=== PATIENT | male | born 1950 | race Caucasian/White ===

== ENCOUNTER 2019-11-20 10:49 | Emergency (ER) | payer OTHER, MEDICARE ==
[~2019-11-20] VITALS: Ht 180.3 cm; Wt 81.7 kg
[2019-11-20 11:24] LABS: BASOPHILS ABSOLUTE AUTO 0.03 K/mm3 (0.00-0.23); BASOPHILS PERCENT AUTO 1 % (0-2); EOSINOPHILS ABSOLUTE AUTO 0.01 K/mm3 (0.00-0.68); EOSINOPHILS PERCENT AUTO 0 % (0-6); Hematocrit 45.6 % (37.0-53.0); Hemoglobin 14.5 g/dL (13.5-17.5); IMMATURE GRAN ABSOLUTE AUTO 0.02 K/mm3 (0.00-0.10); IMMATURE GRAN PERCENT AUTO 0 % (0-1); LYMPHOCYTES ABSOLUTE AUTO 1.33 K/mm3 (0.84-5.20); LYMPHOCYTES PERCENT AUTO 21 % (21-46); MONOCYTES ABSOLUTE AUTO 0.66 K/mm3 (0.16-1.47); MONOCYTES PERCENT AUTO 10 % (4-13); Mean Corpuscular HGB 28.9 pg (26.0-34.0); Mean Corpuscular HGB Conc 31.8 g/dL (31.5-36.5); Mean Corpuscular Volume 91 fL (80-100); Mean Platelet Volume 12.6 fL (9.1-12.4); NEUTROPHILS ABSOLUTE AUTO 4.32 K/mm3 (1.96-9.15); NEUTROPHILS PERCENT AUTO 68 % (41-73); Platelet Count 103 K/mm3 (150-400); RDW Coefficient Variation 13.2 % (11.7-14.2); RDW Standard Deviation 43.8 fL (35.1-46.3); Red Blood Cell Count 5.02 M/mm3 (4.30-5.90); White Blood Cell Count 6.37 K/mm3 (4.00-11.30)
[2019-11-20 11:46] LABS: Alanine Aminotransfer (ALT/SGP 32 U/L (12-78); Albumin, Blood 3.3 g/dL (3.4-5.0); Alk Phos 79 U/L (50-136); Anion Gap 4 mmol/L (6-16); Aspartate Aminotrans (AST/SGOT 22 U/L (12-37); Bilirubin, Total 0.4 mg/dL (0.1-1.0); Blood Urea Nitrogen 17 mg/dL (8-24); Bun/Creatinine Ratio 24.5 (12.0-20.0); CO2, Blood 26 mmol/L (21-32); Calcium, Blood 8.7 mg/dL (8.5-10.1); Chloride, Blood 112 mmol/L (98-108); Globulin, Blood 3.2 g/dL (2.2-4.0); Glomerular Filtration Rate >60 (60-); Glucose, Blood 108 mg/dL (70-99); Potassium, Blood 3.8 mmol/L (3.5-5.5); Sodium, Blood 142 mmol/L (136-145); Total Protein, Blood 6.5 g/dL (6.4-8.2); Troponin I <0.015 ng/mL (0.000-0.040)
[2019-11-20 13:14] LABS: Source, Urine Clean Catch
[2019-11-20 13:18] LABS: Bilirubin, Urine Neg (Neg); Blood, Urine 5+ (Neg); Glucose Qualitative, Urine Neg (Neg); Ketones, Urine Neg (Neg); Leukocyte Esterase, Urine Neg (Neg); Nitrite, Urine Neg (Neg); Protein, Urine Neg (Neg); Urobilinogen, Urine NORM (Normal)
[2019-11-20 13:26] LABS: Appearance, Urine Clear (Clear); Color, Urine Yellow (P-Yellow)
[2019-11-20 13:28] LABS: Bacteria Rare /hpf; Red Blood Cells, Urine 50-100 /hpf (0-2); Squamous Epithelial Cells Rare /hpf (Few); White Blood Cells, Urine 0-2 /hpf (0-5)
== END 2019-11-20 16:02 | disposition home or self-care (01) ==
LOC: ER 10:49
PROVIDERS: Emergency Medicine
DX: R07.9 Chest pain, unspecified (principal); R31.9 Hematuria, unspecified; I25.2 Old myocardial infarction
CPT/HCPCS: 36415; 71046; 72193; 80053; 81001; 84484; 85025; 93005; 93010; 99285-25; Q9967

== ENCOUNTER 2020-06-29 06:05 | Observation (INO) | payer OTHER, MEDICARE ==
[~2020-06-29] VITALS: Ht 180.3 cm; Wt 84.6 kg
[2020-06-29] MEDS ORDERED: CARV25 PO (06:35)
[2020-06-29] MEDS ORDERED: LOSARTAN POTAS100 M1 PO (06:35)
[2020-06-29] MEDS ORDERED: ASPIR 8181 M1 PO (06:36)
[2020-06-29] MEDS ORDERED: ATOR80 PO (06:36)
[2020-06-29] MEDS ORDERED: ISOSORBIDE MONO10 MG PO (06:37)
[2020-06-29 06:42] LABS: BASOPHILS ABSOLUTE AUTO 0.04 K/mm3 (0.00-0.23); BASOPHILS PERCENT AUTO 1 % (0-2); EOSINOPHILS PERCENT AUTO 0 % (0-6); Hematocrit 47.6 % (37.0-53.0); Hemoglobin 14.9 g/dL (13.5-17.5); IMMATURE GRAN ABSOLUTE AUTO 0.01 K/mm3 (0.00-0.10); IMMATURE GRAN PERCENT AUTO 0 % (0-1); LYMPHOCYTES ABSOLUTE AUTO 1.61 K/mm3 (0.84-5.20); LYMPHOCYTES PERCENT AUTO 26 % (21-46); MONOCYTES ABSOLUTE AUTO 0.65 K/mm3 (0.16-1.47); MONOCYTES PERCENT AUTO 11 % (4-13); Mean Corpuscular HGB 28.7 pg (26.0-34.0); Mean Corpuscular HGB Conc 31.3 g/dL (31.5-36.5); Mean Corpuscular Volume 92 fL (80-100); Mean Platelet Volume 12.3 fL (9.1-12.4); NEUTROPHILS ABSOLUTE AUTO 3.79 K/mm3 (1.96-9.15); NEUTROPHILS PERCENT AUTO 62 % (41-73); Platelet Count 103 K/mm3 (150-400); RDW Coefficient Variation 13.3 % (11.7-14.2)
[2020-06-29 06:56] LABS: Alanine Aminotransfer (ALT/SGP 27 U/L (12-78); Albumin, Blood 3.5 g/dL (3.4-5.0); Albumin/Globulin Ratio 1.1 (0.8-1.8); Alk Phos 90 U/L (50-136); Anion Gap 3 mmol/L (6-16); Aspartate Aminotrans (AST/SGOT 12 U/L (12-37); Bilirubin, Total 0.4 mg/dL (0.1-1.0); Blood Urea Nitrogen 16 mg/dL (8-24); Bun/Creatinine Ratio 18.9 (12.0-20.0); CO2, Blood 29 mmol/L (21-32); Calcium, Blood 8.9 mg/dL (8.5-10.1); Chloride, Blood 113 mmol/L (98-108); Creatinine, Blood 0.85 mg/dL (0.60-1.20); Globulin, Blood 3.3 g/dL (2.2-4.0); Glomerular Filtration Rate >60 (60-); Glucose, Blood 96 mg/dL (70-99); Potassium, Blood 4.2 mmol/L (3.5-5.5); Sodium, Blood 145 mmol/L (136-145); Total Protein, Blood 6.8 g/dL (6.4-8.2); Troponin I <0.015 ng/mL (0.000-0.040)
--- NOTE | 2020-06-29 09:48 | NUR ---
Patient is lying in bed and alert. Patient begins crying as soon as I introduce myself and inform patient that I am a Traffic Clerk. Patient tells me about his in ICU and explains that he thinks she "will not make it." Patient shares about his PTSD, his high anxiety and his personal issues. Patient talks about his life growing up, his tour in [place] in the [employer] force and his spiritual journey. Patient would loop back to his and [place] every 15 minutes or so with both topics bringing him to tears. I normalize patient's concerns for his spouse and help reframe the way he thinks about the situation, and provide therapeutic listening, pastoral counselling psychologist and prayer. Patient responds well and shows signs of reduced stress. I will continue to remain available to patient and family.
--- NOTE | 2020-06-29 18:23 | NUR ---
PATIENT ARRIVES TO FLOOR ABOUT 1300. WAS CALLED IN TO SEE IN ICU BECAUSE "SHE WASN'T DOING WELL" WHEN HE DEVELOPED LT SIDED CHEST PAIN RAD TO SHLDR. TOOK ONE NTG AND WAS BETTER. WAS WHEELED DOWN TO E.R. TROPS NEGATIVE. HAS DENIED PAIN WHILE ON MEDICAL FLOOR. UNLABORED RESPIRATIONS. TELE ON AND PER PCU TECH SR. AMBULATORY W/CANE. MARCIN CHRISTENSEN. HAS HEARING AIDS, AND FRIEND IS SUPPOSE TO BRING IN DENTURES -FULL UPPERS AND PARTIAL LOWER. DISCUSS W/PATIENT TO SEE IF HE WANTS AN UPDATE FROM RISK MANAGEMENT CONSULTANT ABOUT HIS AND STS "NO MY DAUGHTER IS KEEPING IN CONTACT." DAUGHTER HAS ARRIVED NEAR END OF SHIFT AND HAS SEEN MOTHER IN ICU. PLEASANT. COOPERATIVE. WCTM
--- NOTE | 2020-06-29 18:36 | NUR ---
Several lengthy visits with Anibal throughout the day. He expresses great anxiety with the thought of losing his . She is in critical condition in ICU. Anibal is appreciative of prayer and theraputic listening. He tells me that spouse's dtr is like a dtr to him as he "raised her since she was 4 yo." She arrived late this afternoon. She appears appropriately overwhelmed and responded well to gentle residence counselor/prayer. I will remain available.
[2020-06-30 05:31] LABS: Anion Gap 5 mmol/L (6-16); Blood Urea Nitrogen 16 mg/dL (8-24); Bun/Creatinine Ratio 21.4 (12.0-20.0); CO2, Blood 25 mmol/L (21-32); Calcium, Blood 8.7 mg/dL (8.5-10.1); Chloride, Blood 112 mmol/L (98-108); Creatinine, Blood 0.75 mg/dL (0.60-1.20); Glomerular Filtration Rate >60 (60-); Glucose, Blood 91 mg/dL (70-99); Potassium, Blood 3.9 mmol/L (3.5-5.5); Sodium, Blood 142 mmol/L (136-145)
--- NOTE | 2020-06-30 06:57 | NUR ---
Call back - Pt was supine in bed, having just returned from seeing spouse. Introductions were made and pt appeared open and willing to divulge his thoughts and emotions. Space provided for reflective grieving. Pt was tearful briefly as he spoke about activities they enjoyed. Pt's step-daughter arrives and condolences given. PC steps out to give room for family to grieve together.
--- NOTE | 2020-06-30 07:21 | NUR ---
SHIFT SUMMARY PT IS A 69 Y/O MALE, ADMITTED FOR CP. HE IS A&O X 4, A 1PA IN THE ROOM WITH A CANE. PT DENIED ANY C/O CHEST PAIN, NAUSEA OR SOB. VITAL SIGNS STABLE. TELE SHOWED NSR IN THE 70S. NO OTHER ACUTE CHANGES IN PT CONDITION NOTED. PT'S SPOUSE IN ICU11 CODED AND PASSED THIS AM. PT WAS TAKEN DOWN BY THIS RN TO SEE HER, AND RETURNED TO HIS ROOM. COMPANY PILOT VISITED AT BEDSIDE. STEP-DAUGHTER CURRENTLY AT BEDSIDE. PT DENIES COMPLAINTS OR NEEDS. REPORT GIVEN TO ONCOMING RN.
[2020-06-30 09:15] LABS: CHOL/HDL RATIO 2.1; Cholesterol 102 mg/dL (50-200); HDL Cholesterol 49 mg/dL (>39); LDL/HDL RATIO 0.8; Low Density Lipoprotein Chol 38 mg/dL (0-110); Triglycerides 73 mg/dL (30-160); Very Low Density Lipoprot Chol 14 mg/dL (6-32)
--- NOTE | 2020-06-30 13:18 | NUR ---
Spiritual care visit conducted. Patient is walking in rm and tearful. Patient reviews life with his spouse. I provide therapeutic listening and grief support. Patient receives a call an old friend, I leave and let them talk.
--- NOTE | 2020-06-30 14:44 | NUR ---
DISCHARGE NOTE PATIENT DISCHARGED TO HOME. PATIENT ALERT AND ORIENTED THIS SHIFT. PATIENT DENIES CHEST PAIN THROUGHOUT THIS SHIFT. PATIENT INDEPENDENT IN THE ROOM. PATIENT PROVIDED WITH DISCHARGE AND MEDICATION INSTRUCTIONS. PATIENT STATES NO QUESTIONS AT THIS TIME. PATIENT REFUSED WHEELCHAIR TO VEHICLE.
--- NOTE | 2020-06-30 18:01 | NUR ---
Provided bereavement student counselor and education to Anibal. Prayer for healing was well recieved. He feels well-loved and supported by friends and neighbors. He was in process of discharge.
== END 2020-06-30 13:58 | disposition home or self-care (01) ==
LOC: ER 06:05 → MEDS 11:26
PROVIDERS: Emergency Medicine; Internal Medicine; Nurse Practitioner Acute Care; ADMIT Internal Medicine
DX: R07.89 Other chest pain (principal); I25.118 Atherosclerotic heart disease of native coronary artery with other forms of angina pectoris; I10 Essential (primary) hypertension; E78.5 Hyperlipidemia, unspecified; J44.9 Chronic obstructive pulmonary disease, unspecified; F41.9 Anxiety disorder, unspecified; Z85.51 Personal history of malignant neoplasm of bladder; Z79.82 Long term (current) use of aspirin; Z88.8 Allergy status to other drugs, medicaments and biological substances; Z79.899 Other long term (current) drug therapy; Z87.891 Personal history of nicotine dependence
CPT/HCPCS: 36415; 71045; 80048; 80053; 80061; 84484; 85025; 93005; 93010; 96372; 96374; 99285-25; A9270-GY; G0378; J1650; J1885; J7050

== ENCOUNTER 2021-01-29 02:36 | Emergency (ER) | payer OTHER, MEDICARE ==
[~2021-01-29] VITALS: Ht 177.8 cm; Wt 83.9 kg
[~2021-01-29 02:36] MED LIST: ASPIR 8181 M1 PO; ATOR80 PO; CARV25 PO; ISOSORBIDE MONO10 MG PO; LOSARTAN POTAS100 M1 PO
== END 2021-01-29 05:24 | disposition home or self-care (01) ==
LOC: ER 02:36
DX: S20.211A Contusion of right front wall of thorax, initial encounter (principal); S00.511A Abrasion of lip, initial encounter; J44.9 Chronic obstructive pulmonary disease, unspecified; I10 Essential (primary) hypertension; E78.5 Hyperlipidemia, unspecified; Z79.82 Long term (current) use of aspirin; Z79.899 Other long term (current) drug therapy; Z88.8 Allergy status to other drugs, medicaments and biological substances; W01.0XXA Fall on same level from slipping, tripping and stumbling without subsequent striking against object, initial encounter
CPT/HCPCS: 70450; 71250; 72125; 90471; 90714; 99284-25

== ENCOUNTER 2022-01-23 21:33 | Emergency (ER) | payer OTHER ==
[~2022-01-23] VITALS: Ht 180.3 cm; Wt 79.8 kg
[2022-01-23 22:16] LABS: BASOPHILS ABSOLUTE AUTO 0.05 K/mm3 (0.00-0.23); BASOPHILS PERCENT AUTO 1 % (0-2); EOSINOPHILS ABSOLUTE AUTO 0.12 K/mm3 (0.00-0.68); EOSINOPHILS PERCENT AUTO 2 % (0-6); Hemoglobin 15.1 g/dL (13.5-17.5); IMMATURE GRAN ABSOLUTE AUTO 0.02 K/mm3 (0.00-0.10); IMMATURE GRAN PERCENT AUTO 0 % (0-1); LYMPHOCYTES ABSOLUTE AUTO 2.12 K/mm3 (0.84-5.20); LYMPHOCYTES PERCENT AUTO 35 % (21-46); MONOCYTES ABSOLUTE AUTO 0.65 K/mm3 (0.16-1.47); MONOCYTES PERCENT AUTO 11 % (4-13); Mean Corpuscular HGB 29.3 pg (26.0-34.0); Mean Corpuscular HGB Conc 32.8 g/dL (31.5-36.5); Mean Corpuscular Volume 89 fL (80-100); Mean Platelet Volume 11.7 fL (9.1-12.4); NEUTROPHILS ABSOLUTE AUTO 3.18 K/mm3 (1.96-9.15); NEUTROPHILS PERCENT AUTO 52 % (41-73); Platelet Count 146 K/mm3 (150-400); RDW Coefficient Variation 13.2 % (11.7-14.2); RDW Standard Deviation 43.7 fL (35.1-46.3); Red Blood Cell Count 5.15 M/mm3 (4.30-5.90); White Blood Cell Count 6.14 K/mm3 (4.00-11.30)
[2022-01-23 22:33] LABS: Acetaminophen, Random <2.0 ug/mL (10.0-30.0); Alanine Aminotransfer (ALT/SGP 25 U/L (12-78); Albumin, Blood 3.4 g/dL (3.4-5.0); Alk Phos 70 U/L (50-136); Anion Gap 5 mmol/L (6-16); Aspartate Aminotrans (AST/SGOT 17 U/L (12-37); Bilirubin, Total 0.3 mg/dL (0.1-1.0); Blood Urea Nitrogen 18 mg/dL (8-24); Bun/Creatinine Ratio 20.9 (12.0-20.0); CO2, Blood 27 mmol/L (21-32); Calcium, Blood 8.9 mg/dL (8.5-10.1); Chloride, Blood 112 mmol/L (98-108); Creatinine, Blood 0.86 mg/dL (0.60-1.20); Ethanol (Alcohol), Blood, Med <3 mg/dL; Globulin, Blood 3.3 g/dL (2.2-4.0); Glomerular Filtration Rate >60 (60-); Glucose, Blood 86 mg/dL (70-99); Salicylate 2.8 mg/dL (2.8-20.0); Sodium, Blood 144 mmol/L (136-145); Total Protein, Blood 6.7 g/dL (6.4-8.2)
== END 2022-01-24 00:14 | disposition home or self-care (01) ==
LOC: ER 21:33
PROVIDERS: Physician Assistant
DX: I10 Essential (primary) hypertension (principal); F41.9 Anxiety disorder, unspecified; F43.10 Post-traumatic stress disorder, unspecified; R45.851 Suicidal ideations; I25.10 Atherosclerotic heart disease of native coronary artery without angina pectoris; J44.9 Chronic obstructive pulmonary disease, unspecified; E78.5 Hyperlipidemia, unspecified; Z88.8 Allergy status to other drugs, medicaments and biological substances; Z79.899 Other long term (current) drug therapy; Z87.891 Personal history of nicotine dependence; Z91.14 Patient's other noncompliance with medication regimen
CPT/HCPCS: 80053; 85025; 93005; 93010; A9270; G0480

== ENCOUNTER 2022-08-10 07:56 | Emergency (ER) | payer OTHER ==
[~2022-08-10] VITALS: Ht 180.3 cm; Wt 81.7 kg
== END 2022-08-10 09:09 | disposition home or self-care (01) ==
LOC: ER 07:56
DX: I10 Essential (primary) hypertension (principal); I25.10 Atherosclerotic heart disease of native coronary artery without angina pectoris; E78.5 Hyperlipidemia, unspecified; J44.9 Chronic obstructive pulmonary disease, unspecified; Z88.8 Allergy status to other drugs, medicaments and biological substances; Z79.899 Other long term (current) drug therapy; Z79.82 Long term (current) use of aspirin; Z87.891 Personal history of nicotine dependence
CPT/HCPCS: 93005; 93010; 99283-25

== ENCOUNTER 2023-05-14 12:03 | Day surgery (SDC) | payer OTHER ==
[~2023-05-14] VITALS: Ht 175.3 cm; Wt 85.0 kg
[2023-05-14] VITALS (7 sets, daily range): BP systolic 100–167; BP diastolic 45–91
[~2023-05-14 12:03] MED LIST changes: +COMBIVENT RESPIM4 G1 INH; +FERSU300 PO; +MAGNESIUM OXID500 MG PO; +NITR.4SL SL; +VITAMIN D310 MC4 PO
--- NOTE | 2023-05-14 17:40 | NUR ---
Discharge instructions reviewed with patient. Patient verbalizes understanding. Copy given to patient to take home.Lungs clear T/O to Auscultation. Discharged via wheelchair to private car for ride home.
== END 2023-05-14 17:49 | disposition home or self-care (01) ==
LOC: ORSCMMR 12:03
PROVIDERS: Orthopaedic Surgery
PROC: 0QPH04Z Removal of Internal Fixation Device from Left Tibia, Open Approach (ICD-10-PCS; principal; 2023-05-14 16:00)
DX: T84.9XXA Unspecified complication of internal orthopedic prosthetic device, implant and graft, initial encounter (principal); Z96.9 Presence of functional implant, unspecified; I10 Essential (primary) hypertension; I25.2 Old myocardial infarction; I25.10 Atherosclerotic heart disease of native coronary artery without angina pectoris; J44.9 Chronic obstructive pulmonary disease, unspecified; Z87.891 Personal history of nicotine dependence; Z86.73 Personal history of transient ischemic attack (TIA), and cerebral infarction without residual deficits; F41.9 Anxiety disorder, unspecified; Z79.899 Other long term (current) drug therapy
CPT/HCPCS: J0690; J2704; J3010; J7120

== ENCOUNTER 2023-10-22 09:51 | Day surgery (SDC) | payer OTHER ==
[~2023-10-22] VITALS: Ht 172.7 cm; Wt 87.0 kg
[2023-10-22] VITALS (14 sets, daily range): BP systolic 121–151; BP diastolic 74–94
[2023-10-22] MEDS ORDERED: ASCO500 PO (10:25)
--- NOTE | 2023-10-22 10:31 | NUR ---
PATIENT DENIES ALLERGIC/ADVERSE REACTION TO TRAMADOL AND REQUESTS IT'S REMOVAL FROM ALLERGY LIST.
--- NOTE | 2023-10-22 11:20 | NUR ---
KNEE HIGH SHAHEEN HOSE AND CALF PAS APPLIED TO RLE.
--- NOTE | 2023-10-22 12:04 | NUR ---
PT AMB TO BATHROOM WITH USE OF HIS CANE.
--- NOTE | 2023-10-22 12:31 | NUR ---
PATIENT REPORTS LEAVING HIS HEARING AID AT HOME. DENTURES TO BE LEFT IN ON TRANSPORT TO OR. GLASSES BROUGHT TO PACU FOR SAFE KEEPING.
--- NOTE | 2023-10-22 16:03 | NUR ---
ARRIVAL TO SURGICAL UNIT PLEASANT. LYING IN HOSPITAL BED. SAT UP & OFFERED FLUIDS. VERY THANKFUL. VERY UNITED [place]. REPORTS HIS HEARING AIDS ARE "IN THE SHOP" DENIES PAIN BUT CAN MOVE BLE WEAKLY. ASSESSMENT CHARTED.
--- NOTE | 2023-10-22 18:46 | NUR ---
SHIFT SUMMARY EATING & DRINKING WELL. NO VOID OF THIS TIME. IV HAS BEEN SL SINCE ARRIVING TO ROOM DUE TO TAKING IN PO & CARDIAC HX. ALERT & PLEASANT. RATES PAIN "BETWEEN A 0 AND 1"
[2023-10-23 00:02] VITALS: BP 104/69
[2023-10-23 04:29] VITALS: BP 120/75
[2023-10-23 04:48] LABS: BASOPHILS ABSOLUTE AUTO 0.01 K/mm3 (0.00-0.23); BASOPHILS PERCENT AUTO 0 % (0-2); EOSINOPHILS PERCENT AUTO 0 % (0-6); Hematocrit 40.5 % (37.0-53.0); Hemoglobin 13.2 g/dL (13.5-17.5); IMMATURE GRAN ABSOLUTE AUTO 0.04 K/mm3 (0.00-0.10); IMMATURE GRAN PERCENT AUTO 0 % (0-1); LYMPHOCYTES ABSOLUTE AUTO 0.84 K/mm3 (0.84-5.20); LYMPHOCYTES PERCENT AUTO 9 % (21-46); MONOCYTES ABSOLUTE AUTO 0.47 K/mm3 (0.16-1.47); MONOCYTES PERCENT AUTO 5 % (4-13); Mean Corpuscular HGB 28.9 pg (26.0-34.0); Mean Corpuscular HGB Conc 32.6 g/dL (31.5-36.5); Mean Corpuscular Volume 89 fL (80-100); Mean Platelet Volume 11.9 fL (9.1-12.4); NEUTROPHILS ABSOLUTE AUTO 8.33 K/mm3 (1.96-9.15); NEUTROPHILS PERCENT AUTO 86 % (41-73); Platelet Count 139 K/mm3 (150-400); RDW Coefficient Variation 13.4 % (11.7-14.2); RDW Standard Deviation 43.8 fL (35.1-46.3); Red Blood Cell Count 4.56 M/mm3 (4.30-5.90); White Blood Cell Count 9.69 K/mm3 (4.00-11.30)
[2023-10-23 05:16] LABS: Bun/Creatinine Ratio 22.9 (12.0-20.0); Calcium, Blood 8.2 mg/dL (8.5-10.1); Creatinine, Blood 0.87 mg/dL (0.60-1.20); Magnesium, Blood 1.9 mg/dL (1.6-2.4); Potassium, Blood 4.3 mmol/L (3.5-5.5)
--- NOTE | 2023-10-23 07:51 | NUR ---
SHIFT SUMMARY AOX4. VSS. DENIES N/V. POD 1 LTK, AQUACEL DRESSING C/D/I. REPORTS MIN 10/03 PAIN IN L KNEE. MEDICATED c SCHEDULED TYLENOL & TORADOL. PT AMBULATED c FWW & ASSISTANCE IN HALLS LAST NIGHT. HAS USED URINAL MULT TIMES TONIGHT. TOLERATING PO INTAKE. REPORT GIVEN TO DAY NURSE.
[2023-10-23 08:11] VITALS: BP 146/71
[2023-10-23] MEDS ORDERED: ACET500 PO (10:47)
[2023-10-23] MEDS ORDERED: OXYC5 PO (10:47)
--- NOTE | 2023-10-23 13:58 | NUR ---
DISCHARGE SUMMARY PT A&OX4, VSS/RA, BRANDI PO, VOIDING, AMB SBA FWW/GB, PAIN MANAGED, IV DCD. DC INS PROVIDED. PT REP UNDERSTANDING THOSE INSTRUCTIONS. LEFT FLOOR VIA WC WITH ALL PERSONAL POSSESSIONS INCLUDING DC PACKET/SCRIPTS AT [facility], TO GO HOME WITH FRIEND.
== END 2023-10-23 11:12 | disposition home or self-care (01) ==
LOC: ORSCMMR 09:51 → ORD 12:30 → SURS 15:38 → ORSCMMR 10-23 11:12
PROVIDERS: Orthopaedic Surgery
PROC: 0SRD0JA Replacement of Left Knee Joint with Synthetic Substitute, Uncemented, Open Approach (ICD-10-PCS; principal; 2023-10-22 12:30)
DX: M17.12 Unilateral primary osteoarthritis, left knee (principal); I25.10 Atherosclerotic heart disease of native coronary artery without angina pectoris; B19.20 Unspecified viral hepatitis C without hepatic coma; J44.9 Chronic obstructive pulmonary disease, unspecified; I10 Essential (primary) hypertension; E78.5 Hyperlipidemia, unspecified; I25.2 Old myocardial infarction; Z86.73 Personal history of transient ischemic attack (TIA), and cerebral infarction without residual deficits; F32.9 Major depressive disorder, single episode, unspecified; Z85.51 Personal history of malignant neoplasm of bladder; Z87.891 Personal history of nicotine dependence; Z79.899 Other long term (current) drug therapy; Z79.82 Long term (current) use of aspirin
CPT/HCPCS: 36415; 73560-LT; 80048; 83735; 85025; 94760; 97110; 97116; 97162; 97530; A9270; C1713; C1776; J0171; J0690; J0735; J1885; J2405; J2704; J2795; J3010; J7120

== ENCOUNTER 2024-04-05 18:31 | Emergency (ER) | payer OTHER ==
[~2024-04-05] VITALS: Ht 180.3 cm; Wt 81.7 kg
[~2024-04-05 18:31] MED LIST changes: +ACET500 PO; +ASCO500 PO; +OXYC5 PO; +Percocet 5-3251 EACH PO
[2024-04-05 20:08] LABS: BASOPHILS ABSOLUTE AUTO 0.04 K/mm3 (0.00-0.23); BASOPHILS PERCENT AUTO 1 % (0-2); EOSINOPHILS PERCENT AUTO 0 % (0-6); Hematocrit 48.3 % (37.0-53.0); Hemoglobin 15.7 g/dL (13.5-17.5); IMMATURE GRAN ABSOLUTE AUTO 0.02 K/mm3 (0.00-0.10); IMMATURE GRAN PERCENT AUTO 0 % (0-1); LYMPHOCYTES ABSOLUTE AUTO 1.38 K/mm3 (0.84-5.20); LYMPHOCYTES PERCENT AUTO 18 % (21-46); MONOCYTES ABSOLUTE AUTO 0.88 K/mm3 (0.16-1.47); MONOCYTES PERCENT AUTO 12 % (4-13); Mean Corpuscular HGB 28.1 pg (26.0-34.0); Mean Corpuscular HGB Conc 32.5 g/dL (31.5-36.5); Mean Corpuscular Volume 86 fL (80-100); Mean Platelet Volume 11.3 fL (9.1-12.4); NEUTROPHILS ABSOLUTE AUTO 5.32 K/mm3 (1.96-9.15); NEUTROPHILS PERCENT AUTO 70 % (41-73); Platelet Count 177 K/mm3 (150-400); RDW Coefficient Variation 13.7 % (11.7-14.2); RDW Standard Deviation 43.6 fL (35.1-46.3); Red Blood Cell Count 5.59 M/mm3 (4.30-5.90); White Blood Cell Count 7.64 K/mm3 (4.00-11.30)
[2024-04-05 20:11] LABS: Influenza A, PCR NEGATIVE (NEGATIVE); Influenza B, PCR NEGATIVE (NEGATIVE); Resp Syncytial Virus, PCR NEGATIVE (NEGATIVE); SARS-Cov-2 (COVID-19) PCR, MMC NEGATIVE (NEGATIVE)
[2024-04-05 20:41] LABS: Albumin, Blood 3.3 g/dL (3.4-5.0); Albumin/Globulin Ratio 0.8 (0.8-1.8); Bilirubin, Total 0.5 mg/dL (0.1-1.0); Bun/Creatinine Ratio 16.2 (12.0-20.0); Creatinine, Blood 0.68 mg/dL (0.60-1.20); Total Protein, Blood 7.3 g/dL (6.4-8.2)
[2024-04-05 23:31] VITALS: BP 187/104
== END 2024-04-05 23:40 | disposition home or self-care (01) ==
LOC: ER 18:31
PROVIDERS: Student in an Organized Health Care Education/Training Program
DX: R10.30 Lower abdominal pain, unspecified (principal); I25.10 Atherosclerotic heart disease of native coronary artery without angina pectoris; I10 Essential (primary) hypertension; E78.5 Hyperlipidemia, unspecified; J44.9 Chronic obstructive pulmonary disease, unspecified; Z87.891 Personal history of nicotine dependence; Z79.82 Long term (current) use of aspirin; Z79.899 Other long term (current) drug therapy; Z88.8 Allergy status to other drugs, medicaments and biological substances
CPT/HCPCS: 0241U; 80053; 83690; 85025; 93005; 93010; 99284-25

== ENCOUNTER 2024-04-10 08:48 | Emergency (ER) | payer OTHER ==
[~2024-04-10] VITALS: Ht 180.3 cm; Wt 79.4 kg
[2024-04-10 09:57] LABS: Calcium, Ionized (POC) 1.14 mmol/L (1.10-1.46); Chloride (POC) 101 mmol/L (98-108); Creatinine (POC) 0.6 mg/dL (0.8-1.3); Glucose (ISTAT POC) 120 mg/dL (70-99); Hemoglobin (POC) 16.3 g/dL (13.5-17.5); Potassium (POC) 3.7 mmol/L (3.5-5.5); Sodium (POC) 139 mmol/L (135-148); Total CO2 (POC) 28 mmol/L (21-32)
[2024-04-10] MEDS ORDERED: DOCU100 PO (10:32)
[2024-04-10] MEDS ORDERED: Magnesium Citrate 300 ML BTL PO ONE (10:35)
[2024-04-10 11:06] VITALS: BP 147/98
== END 2024-04-10 11:13 | disposition home or self-care (01) ==
LOC: ER 08:48
PROVIDERS: Emergency Medicine
DX: K59.00 Constipation, unspecified (principal); I10 Essential (primary) hypertension; M19.90 Unspecified osteoarthritis, unspecified site; J44.9 Chronic obstructive pulmonary disease, unspecified; E78.5 Hyperlipidemia, unspecified; Z87.891 Personal history of nicotine dependence; Z79.82 Long term (current) use of aspirin; Z79.899 Other long term (current) drug therapy; Z88.8 Allergy status to other drugs, medicaments and biological substances
CPT/HCPCS: 74018; 80047; 85014; 99283-25; A9270

== ENCOUNTER 2024-06-28 09:09 | Emergency (ER) | payer OTHER ==
[~2024-06-28] VITALS: Ht 180.3 cm; Wt 77.1 kg
[~2024-06-28 09:09] MED LIST changes: +DOCU100 PO
[2024-06-28 10:13] LABS: Source, Urine Clean Catch
[2024-06-28 10:16] LABS: Appearance, Urine Clear (Clear); Bilirubin, Urine Neg (Neg); Blood, Urine 1+ (Neg); Glucose Qualitative, Urine Neg (Neg); Ketones, Urine Neg (Neg); Leukocyte Esterase, Urine Neg (Neg); Nitrite, Urine Neg (Neg); Protein, Urine Neg (Neg); Urobilinogen, Urine NORM (Normal); pH, Urine 6.5 (5.0-8.0)
[2024-06-28 10:19] LABS: BASOPHILS ABSOLUTE AUTO 0.03 K/mm3 (0.00-0.23); BASOPHILS PERCENT AUTO 1 % (0-2); EOSINOPHILS ABSOLUTE AUTO 0.18 K/mm3 (0.00-0.68); EOSINOPHILS PERCENT AUTO 3 % (0-6); Hematocrit 42.4 % (37.0-53.0); Hemoglobin 13.6 g/dL (13.5-17.5); IMMATURE GRAN ABSOLUTE AUTO 0.01 K/mm3 (0.00-0.10); IMMATURE GRAN PERCENT AUTO 0 % (0-1); LYMPHOCYTES ABSOLUTE AUTO 0.89 K/mm3 (0.84-5.20); LYMPHOCYTES PERCENT AUTO 14 % (21-46); MONOCYTES ABSOLUTE AUTO 0.78 K/mm3 (0.16-1.47); MONOCYTES PERCENT AUTO 12 % (4-13); Mean Corpuscular HGB 27.8 pg (26.0-34.0); Mean Corpuscular HGB Conc 32.1 g/dL (31.5-36.5); Mean Corpuscular Volume 87 fL (80-100); Mean Platelet Volume 11.4 fL (9.1-12.4); NEUTROPHILS ABSOLUTE AUTO 4.43 K/mm3 (1.96-9.15); NEUTROPHILS PERCENT AUTO 70 % (41-73); Platelet Count 181 K/mm3 (150-400); RDW Coefficient Variation 13.6 % (11.7-14.2); RDW Standard Deviation 42.5 fL (35.1-46.3); White Blood Cell Count 6.32 K/mm3 (4.00-11.30)
[2024-06-28 10:21] LABS: Color, Urine No Color (P-Yellow)
[2024-06-28 10:22] LABS: Bacteria Not Seen /hpf; Red Blood Cells, Urine 0-2 /hpf (0-2); Squamous Epithelial Cells Not Seen /hpf (Few); White Blood Cells, Urine 0-2 /hpf (0-5)
[2024-06-28] MEDS ORDERED: Ketorolac Tromethamine 15mg Vial IV ONE (10:25)
[2024-06-28 10:42] LABS: Albumin, Blood 2.7 g/dL (3.4-5.0); Albumin/Globulin Ratio 0.6 (0.8-1.8); Bilirubin, Total 0.4 mg/dL (0.1-1.0); Bun/Creatinine Ratio 29.5 (12.0-20.0); Calcium, Blood 9.2 mg/dL (8.5-10.1); Creatinine, Blood 1.05 mg/dL (0.60-1.20); Globulin, Blood 4.3 g/dL (2.2-4.0); Magnesium, Blood 2.1 mg/dL (1.6-2.4); Potassium, Blood 3.4 mmol/L (3.5-5.5)
[2024-06-28 12:45] VITALS: BP 189/93
== END 2024-06-28 12:56 | disposition home or self-care (01) ==
LOC: ER 09:09
PROVIDERS: Physician Assistant
DX: R10.9 Unspecified abdominal pain (principal); I10 Essential (primary) hypertension; I25.2 Old myocardial infarction; E78.5 Hyperlipidemia, unspecified; F43.10 Post-traumatic stress disorder, unspecified; M19.90 Unspecified osteoarthritis, unspecified site; J44.9 Chronic obstructive pulmonary disease, unspecified; Z87.891 Personal history of nicotine dependence; Z79.82 Long term (current) use of aspirin; Z79.899 Other long term (current) drug therapy; Z88.8 Allergy status to other drugs, medicaments and biological substances
CPT/HCPCS: 74177; 80053; 81001; 83735; 85025; 96374-59; 99284-25; J1885; Q9967

== ENCOUNTER 2024-10-20 06:48 | Emergency (ER) | payer OTHER ==
[~2024-10-20] VITALS: Ht 180.3 cm; Wt 78.0 kg
[~2024-10-20 06:48] MED LIST changes: +METPRE4DP PO
[2024-10-20 07:55] LABS: BASOPHILS ABSOLUTE AUTO 0.04 K/mm3 (0.00-0.23); BASOPHILS PERCENT AUTO 1 % (0-2); EOSINOPHILS PERCENT AUTO 0 % (0-6); Hematocrit 40.4 % (37.0-53.0); Hemoglobin 13.1 g/dL (13.5-17.5); IMMATURE GRAN ABSOLUTE AUTO 0.02 K/mm3 (0.00-0.10); IMMATURE GRAN PERCENT AUTO 0 % (0-1); LYMPHOCYTES ABSOLUTE AUTO 0.65 K/mm3 (0.84-5.20); LYMPHOCYTES PERCENT AUTO 8 % (21-46); MONOCYTES ABSOLUTE AUTO 0.63 K/mm3 (0.16-1.47); MONOCYTES PERCENT AUTO 8 % (4-13); Mean Corpuscular HGB 28.5 pg (26.0-34.0); Mean Corpuscular HGB Conc 32.4 g/dL (31.5-36.5); Mean Corpuscular Volume 88 fL (80-100); NEUTROPHILS PERCENT AUTO 83 % (41-73); Platelet Count 229 K/mm3 (150-400); RDW Coefficient Variation 13.7 % (11.7-14.2); RDW Standard Deviation 43.8 fL (35.1-46.3); Red Blood Cell Count 4.59 M/mm3 (4.30-5.90); White Blood Cell Count 7.84 K/mm3 (4.00-11.30)
[2024-10-20 08:04] LABS: Albumin, Blood 2.7 g/dL (3.4-5.0); Albumin/Globulin Ratio 0.6 (0.8-1.8); Bilirubin, Total 0.3 mg/dL (0.1-1.0); Bun/Creatinine Ratio 17.1 (12.0-20.0); Calcium, Blood 9.2 mg/dL (8.5-10.1); Creatinine, Blood 2.1 mg/dL (0.60-1.20); Globulin, Blood 4.6 g/dL (2.2-4.0); Potassium, Blood 3.6 mmol/L (3.5-5.5); Total Protein, Blood 7.3 g/dL (6.4-8.2)
[2024-10-20] MEDS ORDERED: NS 500 ML IV SCH (08:40)
[2024-10-20] MEDS ORDERED: Losartan Potassium 50 MG Tab PO ONE (10:10)
[2024-10-20] MEDS ORDERED: Carvedilol 25 MG Tab PO ONE (12:15)
[2024-10-20] MEDS ORDERED: ONDA4ODT MM (13:23)
[2024-10-20 13:30] VITALS: BP 136/89
== END 2024-10-20 13:50 | disposition home or self-care (01) ==
LOC: ER 06:48
PROVIDERS: Emergency Medicine
DX: N17.9 Acute kidney failure, unspecified (principal); E86.0 Dehydration; R10.13 Epigastric pain; N13.30 Unspecified hydronephrosis; C67.3 Malignant neoplasm of anterior wall of bladder; I25.10 Atherosclerotic heart disease of native coronary artery without angina pectoris; I25.2 Old myocardial infarction; I10 Essential (primary) hypertension; E78.5 Hyperlipidemia, unspecified; J44.9 Chronic obstructive pulmonary disease, unspecified; M19.90 Unspecified osteoarthritis, unspecified site; Z95.5 Presence of coronary angioplasty implant and graft; Z87.891 Personal history of nicotine dependence; Z88.8 Allergy status to other drugs, medicaments and biological substances; Z79.82 Long term (current) use of aspirin; Z79.899 Other long term (current) drug therapy
CPT/HCPCS: 71046; 74177; 80053; 83690; 84484; 85025; 93005; 93010; 96360-59; 96361; 99284-25; A9270; J7030; Q9967

== ENCOUNTER 2024-12-03 15:37 | Observation (INO) | payer OTHER, MEDICARE ==
[~2024-12-03] VITALS: Ht 180.3 cm; Wt 68.5 kg
[~2024-12-03 15:37] MED LIST changes: +ONDA4ODT MM
[2024-12-03 17:36] LABS: BASOPHILS ABSOLUTE AUTO 0.03 K/mm3 (0.00-0.23); BASOPHILS PERCENT AUTO 0 % (0-2); EOSINOPHILS PERCENT AUTO 0 % (0-6); Hematocrit 39.5 % (37.0-53.0); Hemoglobin 12.7 g/dL (13.5-17.5); IMMATURE GRAN ABSOLUTE AUTO 0.03 K/mm3 (0.00-0.10); IMMATURE GRAN PERCENT AUTO 0 % (0-1); LYMPHOCYTES ABSOLUTE AUTO 0.79 K/mm3 (0.84-5.20); LYMPHOCYTES PERCENT AUTO 11 % (21-46); MONOCYTES ABSOLUTE AUTO 0.76 K/mm3 (0.16-1.47); MONOCYTES PERCENT AUTO 11 % (4-13); Mean Corpuscular HGB 28.9 pg (26.0-34.0); Mean Corpuscular HGB Conc 32.2 g/dL (31.5-36.5); Mean Corpuscular Volume 90 fL (80-100); Mean Platelet Volume 10.9 fL (9.1-12.4); NEUTROPHILS ABSOLUTE AUTO 5.54 K/mm3 (1.96-9.15); NEUTROPHILS PERCENT AUTO 78 % (41-73); Platelet Count 199 K/mm3 (150-400); RDW Coefficient Variation 14.7 % (11.7-14.2); RDW Standard Deviation 48.1 fL (35.1-46.3); White Blood Cell Count 7.15 K/mm3 (4.00-11.30)
[2024-12-03 18:10] LABS: Calcium, Blood 8.8 mg/dL (8.5-10.1); Creatinine, Blood 1.67 mg/dL (0.60-1.20); Potassium, Blood 4.1 mmol/L (3.5-5.5)
[2024-12-03] MEDS ORDERED: Ondansetron HCl 2 MG / ML 2ML Vial IV PRN (19:15)
[2024-12-03] MEDS ORDERED: Atorvastatin 40 MG Tab PO SCH (21:00)
[2024-12-03] MEDS ORDERED: Ipratropium/Albuterol SulF 2.5-0.5MG/3 ML Amp INH SCH (21:00)
[2024-12-03] MEDS ORDERED: Aspirin 81 MG TabEC PO SCH (21:00)
[2024-12-03 21:26] VITALS: BP 188/109
[2024-12-03 21:28] VITALS: BP 196/107
[2024-12-03] MEDS ORDERED: Carvedilol 25 MG Tab PO ONE (22:20)
[2024-12-03] MEDS ORDERED: Losartan Potassium 50 MG Tab PO ONE (22:20)
[2024-12-04 00:55] VITALS: BP 171/102
[2024-12-04 04:27] VITALS: BP 136/83
--- NOTE | 2024-12-04 04:37 | NUR ---
PT ADMITTED FROM ED AT APPROXIMATELY 2200. A&O X4. VS WNL WITH EXCEPTION OF B/P WHICH WAS EXTREMELY ELEVATED. HOME MEDS GIVEN, OVERHEARD TELEPHONE STATION REPAIRER STATE THAT HE GIVES HALF DOSES OF HIS MEDS AT TIMES DEPENDING ON B/P, BUT UNSURE IF THEY CHECK IT EACH TIME. PT WITH RIGHT NEPH TUBE, NO OUTPUT. PT WITH URINE OUTPUT AT APPROXIMATELY 250 ML'S. DENIES PAIN, CALLS APPROPRIATELY, HAS HAD FALLS AT HOME (TRIPPED OVER BOX). AWAITING RENAL WITH BLADDER US, AND WILL NEED NEPHROSTOMY TUBE ON LEFT REPLACED.
[2024-12-04 05:53] LABS: Hematocrit 35.4 % (37.0-53.0); Hemoglobin 11.6 g/dL (13.5-17.5); Mean Corpuscular HGB 29.1 pg (26.0-34.0); Mean Corpuscular HGB Conc 32.8 g/dL (31.5-36.5); Mean Corpuscular Volume 89 fL (80-100); Mean Platelet Volume 11.2 fL (9.1-12.4); Platelet Count 173 K/mm3 (150-400); RDW Coefficient Variation 14.6 % (11.7-14.2); RDW Standard Deviation 47.5 fL (35.1-46.3); Red Blood Cell Count 3.98 M/mm3 (4.30-5.90); White Blood Cell Count 5.54 K/mm3 (4.00-11.30)
[2024-12-04 06:07] LABS: International Normalized Ratio 1.12; Prothrombin Time Results 11.9 Sec (9.7-11.5)
[2024-12-04 06:11] LABS: Bun/Creatinine Ratio 14.2 (12.0-20.0); Calcium, Blood 8.6 mg/dL (8.5-10.1); Creatinine, Blood 1.76 mg/dL (0.60-1.20); Potassium, Blood 4.2 mmol/L (3.5-5.5)
[2024-12-04 07:18] VITALS: BP 141/85
[2024-12-04] MEDS ORDERED: Carvedilol 25 MG Tab PO SCH (08:00)
[2024-12-04] MEDS ORDERED: Acetaminophen 325 MG TABLET PO PRN (08:40)
[2024-12-04] MEDS ORDERED: OxyCODONE HCL 5 MG TAB PO PRN (08:45)
[2024-12-04] MEDS ORDERED: Losartan Potassium 50 MG Tab PO SCH (09:00)
[2024-12-04] MEDS ORDERED: Isosorbide Mononitrate 60 MG TABCR PO SCH (09:00)
--- NOTE | 2024-12-04 13:08 | NUR ---
PT IN BATHROOM, TOOK SHOWER. DURING SHOWER R NEPHROSTOMY WAWS DISLODGED. CARTER AWARE AND ALREADY TO REPLACE L NEPHROSTOMY LATER TODAY. DR MACHADO PLANS TO REPLACE BOTH NEPHROSTOMIES.
[2024-12-04] MEDS ORDERED: NS 500 ML IV ONE (14:09)
[2024-12-04] MEDS ORDERED: FentaNYL Citrate 50 MCG/ML 2 ML Injection ONE (15:06)
[2024-12-04] MEDS ORDERED: NS 1,000 ML IV ONE (15:06)
[2024-12-04] MEDS ORDERED: Midazolam HCl 1MG / ML 2ML Vial ONE (15:06)
--- NOTE | 2024-12-04 18:32 | NUR ---
SHIFT SUMMARY PT A&OX3 AND ANSWERS QUESTONS APPROPRIATELY. PT IS FORGETFUL BUT EASILY REORIENTED. PT HAD SHOWER EARLIER TODAY. PT WENT AND GOT BILATERAL NEPHROSTOMY TUBES REPLACED. PINK OUTPUT PRESENT. VSS, NO COMPLAINTS OF CP/PRESSURE OR SOB. PT REPOSITIONED INDEPENDENTLY. NO ACUTE EVENTS AT THIS TIME. PT SPENT MOST OF SHIFT IN BED RESTING. FALL PRECAUTIONS IN PLACE AND CALL LIGHT IN REACH.
[2024-12-04 19:16] VITALS: BP 153/87
[2024-12-05 03:43] VITALS: BP 123/67
[2024-12-05 06:44] LABS: Hematocrit 33.9 % (37.0-53.0); Hemoglobin 10.9 g/dL (13.5-17.5)
[2024-12-05 07:04] LABS: Bun/Creatinine Ratio 18.1 (12.0-20.0); Calcium, Blood 8.2 mg/dL (8.5-10.1); Creatinine, Blood 1.6 mg/dL (0.60-1.20); Magnesium, Blood 1.7 mg/dL (1.6-2.4); Potassium, Blood 3.8 mmol/L (3.5-5.5)
[2024-12-05 07:20] VITALS: BP 126/70
[2024-12-05 14:07] VITALS: BP 89/64
[2024-12-05 14:09] VITALS: BP 82/60
[2024-12-05 14:23] VITALS: BP 78/55
[2024-12-05] MEDS ORDERED: NS 1,000 ML IV ONE (14:25)
[2024-12-05] MEDS ORDERED: OXYC5 PO (17:08)
[2024-12-05] MEDS ORDERED: CEPH500 PO (17:08)
[2024-12-05 17:18] VITALS: BP 125/77
--- NOTE | 2024-12-05 19:35 | NUR ---
DISCHARGE NOTE PT A&OX4 WITH FORGETFULLNESS. PT ADMITTED DUE TO HYDRONEPHROSIS. PT HAS BILATERAL NEPHROSTOMY. DRESSINGS CHANGED TODAY. NEPHROSTOMYS ARE DRAINING FREELY WITH NO DEPENDENT LOOPS. DR. PERALES DID BEDSIDE FLUSH THROUGH L NEPH TUBE DUE TO LITTLE OUTPUT. PT WORKED WITH PHYSICAL THERAPY THIS AM AND WAS CLARED TO BE INDEPENDENT. PT HAD BLOOD PRESSURE OF 89/[address] PERALES, ORDERED BOLUS OF NS. PT GOT NEW IV, POST BOLUS, PT BLOOD PRESSURE WAS 125/77. NOTIFIED DR. PERALES OF NEW BP AND SHE ORDERED DISCHARGE. WENT OVER DISCHARGE INSTRUCTIONS AND MEDS WITH PT AND CAREGIVER. MEDS FAXED TO PHARMACY. PT WENT WITH PERSONAL BELONGINGS AND HARD SCRIPT. HARD SCRIPT COPY IN CHART. IV REMOVED. PT ESCORTED OUT BY CLINICAL LABORATORY TECHNOLOGIST VIA WHEELCHAIR.
== END 2024-12-05 18:15 | disposition home health service (06) ==
LOC: ER 15:37 → MEDS 15:38 → ENPENDDIS 12-05 14:27 → MEDS 12-05 18:15
PROVIDERS: Emergency Medicine; Hospitalist; Nurse Practitioner Acute Care; ADMIT Student in an Organized Health Care Education/Training Program
DX: T83.022A Displacement of nephrostomy catheter, initial encounter (principal); C67.9 Malignant neoplasm of bladder, unspecified; N13.30 Unspecified hydronephrosis; I25.10 Atherosclerotic heart disease of native coronary artery without angina pectoris; I12.9 Hypertensive chronic kidney disease with stage 1 through stage 4 chronic kidney disease, or unspecified chronic kidney disease; N18.30 Chronic kidney disease, stage 3 unspecified; J44.9 Chronic obstructive pulmonary disease, unspecified; E78.5 Hyperlipidemia, unspecified; F43.10 Post-traumatic stress disorder, unspecified; F41.9 Anxiety disorder, unspecified; Z79.82 Long term (current) use of aspirin; Z79.899 Other long term (current) drug therapy; Z88.8 Allergy status to other drugs, medicaments and biological substances
CPT/HCPCS: 36415; 50432; 50437; 76770; 76937; 80048; 83735; 85014; 85018; 85025; 85027; 85610; 94640; 94664; 94760; 97162; 97530; 99152; 99153; 99285-25; A9270; C1729; C1769; G0378; J2250; J3010; J7030; J7040; Q9967

== ENCOUNTER 2024-12-07 06:16 | Emergency (ER) | payer OTHER, MEDICARE ==
[~2024-12-07] VITALS: Ht 180.3 cm; Wt 72.6 kg
[~2024-12-07 06:16] MED LIST changes: +CEPH500 PO
[2024-12-07] MEDS ORDERED: OxyCODONE 5 mg/Acetamin 325 mg TABLET PO ONE (07:25)
[2024-12-07 07:51] VITALS: BP 129/78
== END 2024-12-07 08:03 | disposition home or self-care (01) ==
LOC: ER 06:16
DX: M54.50 Low back pain, unspecified (principal); Z88.8 Allergy status to other drugs, medicaments and biological substances; Z79.2 Long term (current) use of antibiotics; Z79.82 Long term (current) use of aspirin; Z79.899 Other long term (current) drug therapy; Z87.891 Personal history of nicotine dependence
CPT/HCPCS: 99283; A9270

== ENCOUNTER 2024-12-26 15:47 | Emergency (ER) | payer OTHER, MEDICARE ==
[~2024-12-26] VITALS: Ht 180.3 cm; Wt 70.3 kg
[2024-12-26 16:10] VITALS: BP 137/96
[2024-12-26 16:49] LABS: BASOPHILS ABSOLUTE AUTO 0.04 K/mm3 (0.00-0.23); BASOPHILS PERCENT AUTO 1 % (0-2); EOSINOPHILS ABSOLUTE AUTO 0.01 K/mm3 (0.00-0.68); EOSINOPHILS PERCENT AUTO 0 % (0-6); Hematocrit 36.7 % (37.0-53.0); IMMATURE GRAN ABSOLUTE AUTO 0.03 K/mm3 (0.00-0.10); IMMATURE GRAN PERCENT AUTO 0 % (0-1); LYMPHOCYTES ABSOLUTE AUTO 0.46 K/mm3 (0.84-5.20); LYMPHOCYTES PERCENT AUTO 6 % (21-46); MONOCYTES ABSOLUTE AUTO 0.72 K/mm3 (0.16-1.47); MONOCYTES PERCENT AUTO 10 % (4-13); Mean Corpuscular HGB 28.9 pg (26.0-34.0); Mean Corpuscular HGB Conc 32.7 g/dL (31.5-36.5); Mean Corpuscular Volume 88 fL (80-100); Mean Platelet Volume 10.8 fL (9.1-12.4); NEUTROPHILS ABSOLUTE AUTO 5.88 K/mm3 (1.96-9.15); NEUTROPHILS PERCENT AUTO 82 % (41-73); Platelet Count 237 K/mm3 (150-400); RDW Coefficient Variation 14.6 % (11.7-14.2); RDW Standard Deviation 46.7 fL (35.1-46.3); Red Blood Cell Count 4.15 M/mm3 (4.30-5.90); White Blood Cell Count 7.14 K/mm3 (4.00-11.30)
[2024-12-26 17:23] LABS: Albumin, Blood 2.3 g/dL (3.4-5.0); Albumin/Globulin Ratio 0.6 (0.8-1.8); Bilirubin, Total 0.3 mg/dL (0.1-1.0); Calcium, Blood 8.8 mg/dL (8.5-10.1); Creatinine, Blood 1.05 mg/dL (0.60-1.20); Globulin, Blood 3.7 g/dL (2.2-4.0); Potassium, Blood 3.9 mmol/L (3.5-5.5)
== END 2024-12-26 18:16 | disposition home or self-care (01) ==
LOC: ER 15:47
PROVIDERS: Physician Assistant
DX: Z43.6 Encounter for attention to other artificial openings of urinary tract (principal); D64.9 Anemia, unspecified; I10 Essential (primary) hypertension; I25.2 Old myocardial infarction; E78.5 Hyperlipidemia, unspecified; J45.909 Unspecified asthma, uncomplicated; F43.10 Post-traumatic stress disorder, unspecified; Z88.8 Allergy status to other drugs, medicaments and biological substances; Z79.82 Long term (current) use of aspirin; Z79.2 Long term (current) use of antibiotics; Z79.899 Other long term (current) drug therapy
CPT/HCPCS: 80053; 85025; 99283

== ENCOUNTER 2024-12-31 10:53 | Observation (INO) | payer OTHER, MEDICARE ==
[~2024-12-31] VITALS: Ht 180.3 cm; Wt 68.9 kg
[2025-01-01 15:49] VITALS: BP 113/91
== END 2025-01-01 17:55 | disposition home or self-care (01) ==
LOC: ER 10:53 → ERHOLD 10:54 → MEDS 10:54
PROVIDERS: ADMIT Internal Medicine
DX: T83.022A Displacement of nephrostomy catheter, initial encounter (principal); N13.30 Unspecified hydronephrosis; J44.9 Chronic obstructive pulmonary disease, unspecified; I10 Essential (primary) hypertension; I25.10 Atherosclerotic heart disease of native coronary artery without angina pectoris; I25.2 Old myocardial infarction; E78.5 Hyperlipidemia, unspecified; Z79.82 Long term (current) use of aspirin; Z79.899 Other long term (current) drug therapy; Z88.8 Allergy status to other drugs, medicaments and biological substances; Z95.5 Presence of coronary angioplasty implant and graft

== ENCOUNTER 2025-01-08 12:16 | Inpatient (IN) | payer OTHER ==
[~2025-01-08] VITALS: Ht 180.3 cm; Wt 66.6 kg
[2025-01-08 13:48] LABS: BASOPHILS ABSOLUTE AUTO 0.03 K/mm3 (0.00-0.23); BASOPHILS PERCENT AUTO 0 % (0-2); EOSINOPHILS PERCENT AUTO 0 % (0-6); Hematocrit 41.5 % (37.0-53.0); Hemoglobin 13.2 g/dL (13.5-17.5); IMMATURE GRAN ABSOLUTE AUTO 0.02 K/mm3 (0.00-0.10); IMMATURE GRAN PERCENT AUTO 0 % (0-1); LYMPHOCYTES ABSOLUTE AUTO 0.62 K/mm3 (0.84-5.20); LYMPHOCYTES PERCENT AUTO 7 % (21-46); MONOCYTES ABSOLUTE AUTO 0.81 K/mm3 (0.16-1.47); MONOCYTES PERCENT AUTO 9 % (4-13); Mean Corpuscular HGB 28.6 pg (26.0-34.0); Mean Corpuscular HGB Conc 31.8 g/dL (31.5-36.5); Mean Corpuscular Volume 90 fL (80-100); NEUTROPHILS ABSOLUTE AUTO 7.23 K/mm3 (1.96-9.15); NEUTROPHILS PERCENT AUTO 83 % (41-73); Platelet Count 269 K/mm3 (150-400); RDW Coefficient Variation 14.9 % (11.7-14.2); RDW Standard Deviation 49.1 fL (35.1-46.3); Red Blood Cell Count 4.62 M/mm3 (4.30-5.90); White Blood Cell Count 8.71 K/mm3 (4.00-11.30)
[2025-01-08 14:19] LABS: Albumin, Blood 2.4 g/dL (3.4-5.0); Albumin/Globulin Ratio 0.6 (0.8-1.8); Bilirubin, Total 0.3 mg/dL (0.1-1.0); Bun/Creatinine Ratio 30.1 (12.0-20.0); Calcium, Blood 8.9 mg/dL (8.5-10.1); Creatinine, Blood 1.66 mg/dL (0.60-1.20); Globulin, Blood 4.3 g/dL (2.2-4.0); Potassium, Blood 3.7 mmol/L (3.5-5.5); Total Protein, Blood 6.7 g/dL (6.4-8.2)
[2025-01-08 15:04] LABS: Source, Urine Clean Catch
[2025-01-08 15:12] LABS: Appearance, Urine Clear (Clear); Bilirubin, Urine Neg (Neg); Blood, Urine 2+ (Neg); Color, Urine Yellow (P-Yellow); Glucose Qualitative, Urine Neg (Neg); Ketones, Urine Neg (Neg); Leukocyte Esterase, Urine 2+ (Neg); Nitrite, Urine Neg (Neg); Protein, Urine 1+ (Neg); Specific Gravity, Urine 1.015 (1.003-1.022); Urobilinogen, Urine NORM (Normal)
[2025-01-08 15:22] LABS: Bacteria Many /hpf; Squamous Epithelial Cells Rare /hpf (Few)
[2025-01-08] MEDS ORDERED: CefTRIAXone Sodium 1,000 MG in NS 100 ML IV ONE (16:50)
[2025-01-08] MEDS ORDERED: Ondansetron HCl 2 MG / ML 2ML Vial IV PRN (19:35)
[2025-01-08] MEDS ORDERED: NS 1,000 ML IV SCH (19:35)
[2025-01-08] MEDS ORDERED: Ipratropium/Albuterol SulF 2.5-0.5MG/3 ML Amp INH SCH (19:35)
[2025-01-08] MEDS ORDERED: Lactobacil 2-S.Thermo-Bifido 1 1 Cap PO SCH (21:00)
[2025-01-08 22:27] VITALS: BP 174/111
--- NOTE | 2025-01-08 23:41 | NUR ---
PATIENT IS A NEW ADMIT FROM THE ED. ALERT ORIENTED AND THREE PERSON TRANSFER FROM [facility] TO BED. NPO, C[place], AND ON ROOM AIR. DENIES CHEST PAIN, SOB, AND N/V. LEFT NEPHROSTOMY TUBE IN PLACE FROM HOME. STITCHES TO RIGHT TRICEP AREA FROM SKIN CANCER REMOVAL [facility]. SCAB ON LEFT HAND FROM HOME GLF. PREVIOUS RIGHT NEPHROSTOMY SITE. PIV INTACT AND NS STARTED @ 100 mL/HR. ORIENTED TO ROOM AND CALL LIGHT SYSTEM. WCTM.
[2025-01-09] VITALS (11 sets, daily range): BP systolic 116–167; BP diastolic 70–98
--- NOTE | 2025-01-09 04:19 | NUR ---
SHIFT SUMMARY PATIENT HAD NO ACUTE CHANGES. NPO. ALERT AND ORIENTED WITH 1-2 ASSIST TO BSC. NEPHROSTOMY LEFT SIDE INTACT. PIV INTACT. NS INFUSING @ 100 mL/HR. DENIES CHEST PAIN, SOB, AND N/V. VSS/AFEBRILE. CONSULT CALLED INTO [facility]. HYPERTENSIVE. SLEPT MOST OF THE SHIFT. CALL LIGHT IN REACH. BED IN LOWEST POSITION. WILL CONTINUE TO MONITOR UNTIL DAY SHIFT NURSE ASSUMES CARE.
[2025-01-09 05:49] LABS: BASOPHILS ABSOLUTE AUTO 0.04 K/mm3 (0.00-0.23); BASOPHILS PERCENT AUTO 1 % (0-2); EOSINOPHILS PERCENT AUTO 0 % (0-6); Hematocrit 38.5 % (37.0-53.0); Hemoglobin 12.3 g/dL (13.5-17.5); IMMATURE GRAN ABSOLUTE AUTO 0.03 K/mm3 (0.00-0.10); IMMATURE GRAN PERCENT AUTO 0 % (0-1); LYMPHOCYTES ABSOLUTE AUTO 0.57 K/mm3 (0.84-5.20); LYMPHOCYTES PERCENT AUTO 8 % (21-46); MONOCYTES ABSOLUTE AUTO 0.78 K/mm3 (0.16-1.47); MONOCYTES PERCENT AUTO 11 % (4-13); Mean Corpuscular HGB 28.7 pg (26.0-34.0); Mean Corpuscular HGB Conc 31.9 g/dL (31.5-36.5); Mean Corpuscular Volume 90 fL (80-100); Mean Platelet Volume 11.2 fL (9.1-12.4); NEUTROPHILS ABSOLUTE AUTO 6.04 K/mm3 (1.96-9.15); NEUTROPHILS PERCENT AUTO 81 % (41-73); Platelet Count 231 K/mm3 (150-400); RDW Coefficient Variation 14.9 % (11.7-14.2); RDW Standard Deviation 48.8 fL (35.1-46.3); Red Blood Cell Count 4.29 M/mm3 (4.30-5.90); White Blood Cell Count 7.46 K/mm3 (4.00-11.30)
[2025-01-09 06:12] LABS: Albumin, Blood 2.2 g/dL (3.4-5.0); Albumin/Globulin Ratio 0.6 (0.8-1.8); Bilirubin, Total 0.3 mg/dL (0.1-1.0); Bun/Creatinine Ratio 27.8 (12.0-20.0); Calcium, Blood 8.5 mg/dL (8.5-10.1); Creatinine, Blood 1.58 mg/dL (0.60-1.20); Globulin, Blood 3.8 g/dL (2.2-4.0); Potassium, Blood 3.3 mmol/L (3.5-5.5)
[2025-01-09] MEDS ORDERED: Carvedilol 25 MG Tab PO SCH (08:00)
[2025-01-09] MEDS ORDERED: CefTRIAXone Sodium 1,000 MG in NS 100 ML IV SCH (09:00)
[2025-01-09] MEDS ORDERED: Isosorbide Mononitrate 60 MG TABCR PO SCH (09:00)
[2025-01-09] MEDS ORDERED: NS 500 ML IV ONE (13:31)
[2025-01-09] MEDS ORDERED: FentaNYL Citrate 50 MCG/ML 2 ML Injection ONE (13:44)
[2025-01-09] MEDS ORDERED: Midazolam HCl 1MG / ML 2ML Vial ONE (13:44)
[2025-01-09] MEDS ORDERED: NS 1,000 ML IV ONE (13:45)
--- NOTE | 2025-01-09 17:44 | NUR ---
SHIFT SUMMARY PT AOX4, COOPERATIVE, ABLE TO MAKE NEEDS KNOWN. NPO FOR MOST OF SHIFT FOR PROCEDURE. PT RETURNED FROM PROCEDURE WITH RIGHT NEPH TUBE BACK IN. SOME BLOOD IN BAG STILL. PT HAD BM THIS SHIFT, APPEARS CONSTIPATED. USED STAND AND PIVOT TRANSFER METHOD TO COMMODE WITH INJURY. SHOULD DC TOMORROW. FOLLOW UP ORDERS PLACED FOR DC. BED IN LOWEST POSITION, CALL LIGHT WITHIN REACH.
[2025-01-10] MEDS ORDERED: FentaNYL Citrate 50 MCG/ML 2 ML Injection IV PRN (01:40)
[2025-01-10 03:39] VITALS: BP 122/71
--- NOTE | 2025-01-10 05:14 | NUR ---
PT IS A/OX4, PLEASANT AND COOPERATIVE. THE PT IS UP WITH MINIMAL ASSIST TO THE BSC. THE PT APPEARS TO BE BREATHING WELL ON RA. THE PT HAS BILATERAL NEPHROSTOMY TUBES INPLACE AND DRAINING. THE NEWLY PLACED RIGHT NEPHROSTOMY HAS SOME BLODY DRAINAGE WITH CLOTS NOTICED BUT HAS HAD GOOD OUTPUT T/O THE NIGHT. THE LEFT NEPHROSTOMY TUBE HAS HAD LESS OUTPUT THAN THE RIGHT. THE PT WAS MEDICATED FOR PAIN IN HIS STOMACH X1 THIS SHIFT. PT HAD A SMALL FORMED BM, DURING THE NIGHT. CALL LIGHT IN REACH, BED IN THE LOW POSITION
[2025-01-10 07:35] VITALS: BP 136/85
--- NOTE | 2025-01-10 15:38 | NUR ---
SHIFT SUMMARY PATIENT DISCHARGED HOME WITH ROOMMATE TO DRIVE HIM. IV REMOVED WITHOUT COMPLICATION. TELEPHONE OKAY FROM DR GOMEZ TO REMOVE SUTURES FROM RIGHT ELBOW, TOTAL OF 10 SUTURES REMOVED WITHOUT COMPLICATION, EDGES REMAINED APPROXIMATED, NO S/S OF INFECTION, NO REPORT OF PAIN. DISCHARGE PACKET GIVEN AND REVIEWED, QUESTIONS ANSWERED, VERBALIZED UNDERSTANDING. BILAT NEPH TUBES INTACT AND DRAINING TO GRAVITY, L YELLOW, R RED WITH CLOTS.
== END 2025-01-10 13:40 | disposition home or self-care (01) | DRG 694 ==
LOC: ER 12:16 → MEDS 12:17 → ERHOLD 12:17 → MEDS 22:19 → ENPENDDIS 01-10 11:35 → MEDS 01-10 13:40
PROVIDERS: Nurse Practitioner Acute Care; Physician Assistant; ADMIT Internal Medicine
PROC: 0T25X0Z Change Drainage Device in Kidney, External Approach (ICD-10-PCS; principal; 2025-01-09)
DX: N13.30 Unspecified hydronephrosis (principal); I25.10 Atherosclerotic heart disease of native coronary artery without angina pectoris; E78.5 Hyperlipidemia, unspecified; J44.9 Chronic obstructive pulmonary disease, unspecified; M19.90 Unspecified osteoarthritis, unspecified site; N17.9 Acute kidney failure, unspecified; I12.9 Hypertensive chronic kidney disease with stage 1 through stage 4 chronic kidney disease, or unspecified chronic kidney disease; F41.9 Anxiety disorder, unspecified; F43.10 Post-traumatic stress disorder, unspecified; Z96.652 Presence of left artificial knee joint; N39.0 Urinary tract infection, site not specified; N18.30 Chronic kidney disease, stage 3 unspecified; I25.2 Old myocardial infarction; Z79.899 Other long term (current) drug therapy; Z79.51 Long term (current) use of inhaled steroids; Z79.82 Long term (current) use of aspirin; Z88.8 Allergy status to other drugs, medicaments and biological substances; Z85.51 Personal history of malignant neoplasm of bladder; Z98.890 Other specified postprocedural states; Z95.5 Presence of coronary angioplasty implant and graft; Z85.54 Personal history of malignant neoplasm of ureter
CPT/HCPCS: 36415; 74177; 76937; 80053; 81001; 83735; 83880; 85025; 87086; 94640; 94664; 94760; 96361; 96365-59; 96366; 99152; 99285-25; A9270; C1729; C1769; C1894; G0378; J0696; J2250; J3010; J7030; J7040; Q9967

== ENCOUNTER 2025-01-16 05:45 | Emergency (ER) | payer MEDICARE ==
[~2025-01-16] VITALS: Ht 180.3 cm; Wt 70.3 kg
[~2025-01-16 05:45] MED LIST changes: +LOSA25 PO; -LOSARTAN POTAS100 M1 PO
[2025-01-16 06:33] LABS: BASOPHILS ABSOLUTE AUTO 0.04 K/mm3 (0.00-0.23); BASOPHILS PERCENT AUTO 0 % (0-2); EOSINOPHILS ABSOLUTE AUTO 0.01 K/mm3 (0.00-0.68); EOSINOPHILS PERCENT AUTO 0 % (0-6); Hematocrit 37.2 % (37.0-53.0); Hemoglobin 11.9 g/dL (13.5-17.5); IMMATURE GRAN ABSOLUTE AUTO 0.06 K/mm3 (0.00-0.10); IMMATURE GRAN PERCENT AUTO 1 % (0-1); LYMPHOCYTES ABSOLUTE AUTO 0.73 K/mm3 (0.84-5.20); LYMPHOCYTES PERCENT AUTO 7 % (21-46); MONOCYTES ABSOLUTE AUTO 1.11 K/mm3 (0.16-1.47); MONOCYTES PERCENT AUTO 11 % (4-13); Mean Corpuscular HGB 28.9 pg (26.0-34.0); Mean Corpuscular Volume 90 fL (80-100); NEUTROPHILS ABSOLUTE AUTO 8.53 K/mm3 (1.96-9.15); NEUTROPHILS PERCENT AUTO 81 % (41-73); Platelet Count 237 K/mm3 (150-400); RDW Coefficient Variation 15.1 % (11.7-14.2); RDW Standard Deviation 49.1 fL (35.1-46.3); Red Blood Cell Count 4.12 M/mm3 (4.30-5.90); White Blood Cell Count 10.48 K/mm3 (4.00-11.30)
[2025-01-16 06:50] LABS: Magnesium, Blood 1.8 mg/dL (1.6-2.4)
[2025-01-16 06:51] LABS: Albumin/Globulin Ratio 0.5 (0.8-1.8); Bilirubin, Total 0.3 mg/dL (0.1-1.0); Bun/Creatinine Ratio 29.4 (12.0-20.0); Calcium, Blood 8.2 mg/dL (8.5-10.1); Creatinine, Blood 1.02 mg/dL (0.60-1.20)
[2025-01-16] MEDS ORDERED: Acetaminophen 500 MG Tab PO ONE (07:10)
[2025-01-16 11:46] VITALS: BP 115/64
== END 2025-01-16 12:22 | disposition home or self-care (01) ==
LOC: ER 05:45
PROVIDERS: Student in an Organized Health Care Education/Training Program
DX: R07.9 Chest pain, unspecified (principal); I10 Essential (primary) hypertension; I25.2 Old myocardial infarction; E78.5 Hyperlipidemia, unspecified; J44.9 Chronic obstructive pulmonary disease, unspecified; M19.90 Unspecified osteoarthritis, unspecified site; F43.10 Post-traumatic stress disorder, unspecified; Z88.8 Allergy status to other drugs, medicaments and biological substances; Z79.82 Long term (current) use of aspirin; Z79.899 Other long term (current) drug therapy
CPT/HCPCS: 71046; 80053; 83735; 84484; 85025; 93005; 93010; 99285-25; A9270

== ENCOUNTER 2025-01-22 15:00 | Inpatient (IN) | payer OTHER, MEDICARE ==
[~2025-01-22 15:00] MED LIST changes: +Furosemide 40 MG Tab PO ONE; -LOSA25 PO; +LOSARTAN POTAS100 M1 PO
[2025-01-22] MEDS ORDERED: NS 1,000 ML IV SCH (15:20)
[2025-01-22 15:35] LABS: BASOPHILS ABSOLUTE AUTO 0.04 K/mm3 (0.00-0.23); BASOPHILS PERCENT AUTO 0 % (0-2); EOSINOPHILS ABSOLUTE AUTO 0.01 K/mm3 (0.00-0.68); EOSINOPHILS PERCENT AUTO 0 % (0-6); Hematocrit 38.9 % (37.0-53.0); Hemoglobin 12.6 g/dL (13.5-17.5); IMMATURE GRAN ABSOLUTE AUTO 0.04 K/mm3 (0.00-0.10); IMMATURE GRAN PERCENT AUTO 0 % (0-1); LYMPHOCYTES ABSOLUTE AUTO 0.53 K/mm3 (0.84-5.20); LYMPHOCYTES PERCENT AUTO 6 % (21-46); MONOCYTES PERCENT AUTO 8 % (4-13); Mean Corpuscular HGB 28.5 pg (26.0-34.0); Mean Corpuscular HGB Conc 32.4 g/dL (31.5-36.5); Mean Corpuscular Volume 88 fL (80-100); Mean Platelet Volume 11.9 fL (9.1-12.4); NEUTROPHILS ABSOLUTE AUTO 7.92 K/mm3 (1.96-9.15); NEUTROPHILS PERCENT AUTO 86 % (41-73); Platelet Count 208 K/mm3 (150-400); RDW Coefficient Variation 14.8 % (11.7-14.2); Red Blood Cell Count 4.42 M/mm3 (4.30-5.90); White Blood Cell Count 9.24 K/mm3 (4.00-11.30)
[2025-01-22 15:56] LABS: Albumin, Blood 2.2 g/dL (3.4-5.0); Albumin/Globulin Ratio 0.5 (0.8-1.8); Bilirubin, Total 0.3 mg/dL (0.1-1.0); Bun/Creatinine Ratio 40.5 (12.0-20.0); Calcium, Blood 8.8 mg/dL (8.5-10.1); Creatinine, Blood 1.53 mg/dL (0.60-1.20); Globulin, Blood 4.2 g/dL (2.2-4.0); Total Protein, Blood 6.4 g/dL (6.4-8.2)
[2025-01-22] MEDS ORDERED: Azithromycin 500 MG in NS 250 ML IV ONE (21:10)
[2025-01-22] MEDS ORDERED: CefTRIAXone Sodium 1,000 MG in NS 100 ML IV ONE (21:10)
[2025-01-22] MEDS ORDERED: Ondansetron 4 MG TAB PO PRN (22:45)
[2025-01-22] MEDS ORDERED: Magnesium Hydroxide Conc 10 ML UDC PO PRN (22:45)
[2025-01-22 23:24] VITALS: BP 151/86
--- NOTE | 2025-01-23 00:03 | NUR ---
PT ARRIVED FROM ER, PT IS AGUA CALIENTE PLACED ON TELE SR 65, UPPER LUNGS ARE CLEAR WITH SOME WHEEZING WITH EXERTION, PT REPORTS HX FALL 1 WEEK AGO MINOR ABRASION HEALING AND BRUISIMG AT VARIED STAGES, PT ON 3LNC 94-96% POX, BLIT NEPH DRAINS W/ RIGHT SIDE DRAINING FASTER,BILAT 3+ SWELLING TO LE PITTING, PT IS 1P ASSIST USES CANE AT BASELINE, PT HAS CAREGIVER "STEVEN" WHOM HE LIVES WITH, PT REPORTS BACK PAIN 7/10 HX "SPINAL STENOSIS" WORSEN WITH INSPIRATION, HOB ELEVATED FOR COMFORT CALL WITHIN REACH
[2025-01-23] MEDS ORDERED: CefTRIAXone Sodium 1,000 MG in NS 100 ML IV SCH (00:58)
[2025-01-23 03:39] VITALS: BP 142/80
[2025-01-23] MEDS ORDERED: OxyCODONE HCL 5 MG TAB PO PRN ×2 (03:45→14:55)
--- NOTE | 2025-01-23 05:07 | NUR ---
SHIFT SUMMARY PT WAS ADMITTED FROM THE ER AT 2309 WITH A DX OF PNEUMONIA. HES ALERT ORIENTED X 4 ABLE TO VERBALIZE NEEDS REMAINS ON 3L VIA NC SATTING AT 95%. REMAINS ON ROCEPHIN AND ZITHROMAX ORDERED FOR PNEUMONIA. HE HAS WHEEZES BILAT. C/O BACK PAIN NEW ORDER RECEIVED FOR OXY. A DOSE WAS GIVEN WITH GOOD RELIEF. 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 REMAINS ON A CONTINUOUS PULSE OX. CONTINUES ON TELEMETRY AT NSR AT 68. HES RESTING IN BED AT THIS TIME WITH CALL LIGHT IN REACH
[2025-01-23] MEDS ORDERED: Furosemide 40 MG Tab PO ONE (06:00)
[2025-01-23 06:44] LABS: BASOPHILS ABSOLUTE AUTO 0.03 K/mm3 (0.00-0.23); BASOPHILS PERCENT AUTO 0 % (0-2); EOSINOPHILS PERCENT AUTO 0 % (0-6); Hematocrit 37.9 % (37.0-53.0); Hemoglobin 11.9 g/dL (13.5-17.5); IMMATURE GRAN ABSOLUTE AUTO 0.05 K/mm3 (0.00-0.10); IMMATURE GRAN PERCENT AUTO 1 % (0-1); LYMPHOCYTES ABSOLUTE AUTO 0.64 K/mm3 (0.84-5.20); LYMPHOCYTES PERCENT AUTO 7 % (21-46); MONOCYTES ABSOLUTE AUTO 0.71 K/mm3 (0.16-1.47); MONOCYTES PERCENT AUTO 8 % (4-13); Mean Corpuscular HGB 28.5 pg (26.0-34.0); Mean Corpuscular HGB Conc 31.4 g/dL (31.5-36.5); Mean Corpuscular Volume 91 fL (80-100); Mean Platelet Volume 11.4 fL (9.1-12.4); NEUTROPHILS ABSOLUTE AUTO 7.18 K/mm3 (1.96-9.15); NEUTROPHILS PERCENT AUTO 84 % (41-73); Platelet Count 178 K/mm3 (150-400); RDW Standard Deviation 49.5 fL (35.1-46.3); Red Blood Cell Count 4.18 M/mm3 (4.30-5.90); White Blood Cell Count 8.61 K/mm3 (4.00-11.30)
[2025-01-23 07:15] LABS: Albumin, Blood 1.8 g/dL (3.4-5.0); Albumin/Globulin Ratio 0.5 (0.8-1.8); Bilirubin, Total 0.2 mg/dL (0.1-1.0); Bun/Creatinine Ratio 44.5 (12.0-20.0); Calcium, Blood 8.2 mg/dL (8.5-10.1); Creatinine, Blood 1.19 mg/dL (0.60-1.20); Globulin, Blood 3.8 g/dL (2.2-4.0); Potassium, Blood 3.7 mmol/L (3.5-5.5); Total Protein, Blood 5.6 g/dL (6.4-8.2)
[2025-01-23 07:25] VITALS: BP 141/74
[2025-01-23] MEDS ORDERED: Carvedilol 25 MG Tab PO SCH ×2 (08:00→21:00)
[2025-01-23] MEDS ORDERED: Sennosides 8.6 MG Tab PO SCH (09:00)
[2025-01-23] MEDS ORDERED: Misc. Inhaler INH SCH (09:00)
[2025-01-23] MEDS ORDERED: Lactobacil 2-S.Thermo-Bifido 1 1 Cap PO SCH (09:00)
[2025-01-23] MEDS ORDERED: Losartan Potassium 25 MG Tab PO SCH (09:00)
[2025-01-23] MEDS ORDERED: Aspirin 81 MG TabEC PO SCH (09:00)
[2025-01-23] MEDS ORDERED: Isosorbide Mononitrate 60 MG TABCR PO SCH (09:00)
[2025-01-23] MEDS ORDERED: Heparin Sodium,Porcine 5,000 UNIT/0.5 ML SDV SC SCH (09:00)
--- NOTE | 2025-01-23 11:37 | NUR ---
"Spiritual Care | Pt. request Pt. is awake in his bed when he welcomed my visit. PPt. is pleasant, and quickly displays evidence of his faye by singing the first line of a hymn. Pt. displayed surprise when this carbon sequestration plant manager sang the second line, and together we finished the hymn. Pt. displayed evidence of tom. Faciliated a life review and then established rapport as this carbon sequestration plant manager was familiar with the Pts. automatic tire tester. Pt. verbalized that he wanted to make sure that he was getting strong enough to go home so he would not be a burden to his roommates. Prayed with the Pt. Pr. verbalized gratitude for the spiritual care visit."
[2025-01-23] MEDS ORDERED: Albuterol HFA200 ACT/6.7 GM INH INH PRN (11:40)
[2025-01-23] MEDS ORDERED: Albuterol HFA200 ACT/6.7 GM INH INH SCH (11:40)
[2025-01-23 11:41] VITALS: BP 121/83
[2025-01-23 15:39] VITALS: BP 90/66
[2025-01-23 17:15] VITALS: BP 111/73
--- NOTE | 2025-01-23 19:55 | NUR ---
SHIFT SUMMARY PT A&OX4. PT [place]. PT ADMITED DUE TO PNEUMONIA. PT REPORTS NO SOB/CHEST PAIN. PT REPORTS CHRONIC BACK PAIN. PAIN MANAGED PER EMAR. DR GOMEZ ORDERED INCREASE IN OXY DOSE TO 5-10MG Q6 HR. PT HAS BILATERAL NEPHROSTOMY. BOTH DRAINING ADEQUATE AND EMPTIED PRN. PT IS SBA. FAMILY BROUGHT IN HOME INHALER. INHALER WAS SENT TO PHARMACY TO GET VERIFIED. MED IN DRAWER. PT DID NOT EAT ADEQUATELY, OFFERED ENSURE, PT DRANK AND PERFERED ENSURE. PT ON TELE, NO TELE REPORTS THROUGH SHIFT. PT IN BED, BED IN LOWEST POSITION, CALL LIGHT IN REACH
--- NOTE | 2025-01-23 20:00 | NUR ---
ASSUMED CARE OF PT AT 1900. REPORT RECEIVED AT BEDSIDE. PT PRESENTS IN BED. RESTING WITH EYES CLOSED. WHEN AWAKE, PT ALERT AND ORIENTED, PLEASANT AND COOPERATIVE WITH CARE AND ASSESSMENT. PT NOTED TO BE VERY HARD OF HEARING. PT ABLE TO COMMUNICATE HIS NEEDS. WILL REVIEW CHART AND PLAN OF CARE.
[2025-01-23 20:25] VITALS: BP 111/73
[2025-01-23] MEDS ORDERED: Atorvastatin 40 MG Tab PO SCH (21:00)
[2025-01-23] MEDS ORDERED: Azithromycin 500 MG in NS 250 ML IV SCH (21:00)
[2025-01-23] MEDS ORDERED: NS 250 ML IV PRN (21:05)
[2025-01-24] VITALS (12 sets, daily range): BP systolic 42–122; BP diastolic 34–79
--- NOTE | 2025-01-24 06:42 | NUR ---
PT HAS HAD SOME DIFFICULTIES WITH GETTING ASLEEP TONIGHT. PT HAS BEEN MEDICATED WITH OXYCODONE FOR COMPLAINT OF PAIN. PT HAS TO BE REMINDED TO KEEP HIS OXYGEN ON. PT DESATURATES INTO 80 PERCENTS WHEN HIS OXYGEN IS OFF. MAINTAINS > 90 PERCENT WHEN WEARING OXYGEN. PT HAS BEEN ABLE TO MOVE ABOUT IN BED. WILL CONTINUE TO MONITOR PT, AND WILL REPORT OFF TO ONCOMING RN.
--- NOTE | 2025-01-24 12:28 | NUR ---
PT'S BLOOD PRESSURE LOW. PT IS ASYMPTOMATIC. MANUAL BLOOD PRESSURE RECIEVED, 72/44 ON LEFT ARM, 74/[address] GOMEZ NOTIFIED.
[2025-01-24] MEDS ORDERED: Midodrine 5 MG Tab PO ONE (13:00)
[2025-01-24] MEDS ORDERED: Albumin (Human) 25gm/100ml 100 ML IV SCH (13:15)
--- NOTE | 2025-01-24 17:42 | NUR ---
SHIFT SUMMARY PT IS A/OX3-4, FORGETFUL AT TIMES. UP WITH 1 PERSON ASSIST WITH FWW. PT HYPOTENSIVE THIS AFTERNOON. PT REMAINS ASYMPTOMATIC. DR GOMEZ NOTIFED, ONE TIME ORDER OF MIDODRINE GIVEN PER NOV. BLOOD PRESSURE TRENDING UPWARDS. PT MEDICATED X2 WITH OXYCODONE PER NOV FOR CHRONIC BACK PAIN. CONTINUING IV ANTIBIOTICS. ON TELE RUNNING NORMAL SINUS RYTHYM IN THE 60'S. PT IS PLEASANT AND COOPERATIVE WITH CARE.
[2025-01-25] VITALS (7 sets, daily range): BP systolic 104–137; BP diastolic 69–85
[2025-01-25] MEDS ORDERED: OxyCODONE HCL 5 MG TAB PO ONE (02:15)
[2025-01-25] MEDS ORDERED: OxyCODONE HCL 5 MG TAB PO PRN (02:20)
[2025-01-25] MEDS ORDERED: Calcium Carbonate 500 MG Tab Chew PO PRN (02:20)
--- NOTE | 2025-01-25 04:56 | NUR ---
SHIFT SUMMARY NOC PT A/O X 3. CONFUSED AT TIMES, BUT PLEASANT AND COOPERATIVE WITH CARE. VSS. ON 3-4L/NC TO MAINTAIN SPO2 >92%, PT TAKES OFF O2 FREQUENTLY AND DESATS INTO LOW 80'S. ON TELE SINUS WITH BBB IN 80'S WITH RHYTHM STRIP INTERPRETED AND VERIFIED BY RN. PT HAS BILATERAL NEPHROSTOMY TUBES WITH GOOD URINE OUTPUT. PT CHRONIC BACK PAIN BEING MANAGED PER EMAR. HAD C/O OF INDIGESTION AND TUMS Q6H ORDERED. PT CURRENTLY AWAITING WORD ON [place] CAREGIVERS FOR HOME HEALTH. PT CURRENTLY RESTING WITH BED IN LOWEST POSITION, AND CALL LIGHT WITHIN REACH.
[2025-01-25 05:25] LABS: BASOPHILS ABSOLUTE AUTO 0.04 K/mm3 (0.00-0.23); BASOPHILS PERCENT AUTO 1 % (0-2); EOSINOPHILS ABSOLUTE AUTO 0.27 K/mm3 (0.00-0.68); EOSINOPHILS PERCENT AUTO 4 % (0-6); Hematocrit 36.9 % (37.0-53.0); Hemoglobin 11.7 g/dL (13.5-17.5); IMMATURE GRAN ABSOLUTE AUTO 0.05 K/mm3 (0.00-0.10); IMMATURE GRAN PERCENT AUTO 1 % (0-1); LYMPHOCYTES ABSOLUTE AUTO 0.64 K/mm3 (0.84-5.20); LYMPHOCYTES PERCENT AUTO 9 % (21-46); MONOCYTES ABSOLUTE AUTO 0.76 K/mm3 (0.16-1.47); MONOCYTES PERCENT AUTO 10 % (4-13); Mean Corpuscular HGB 29.6 pg (26.0-34.0); Mean Corpuscular HGB Conc 31.7 g/dL (31.5-36.5); Mean Corpuscular Volume 93 fL (80-100); Mean Platelet Volume 11.3 fL (9.1-12.4); NEUTROPHILS ABSOLUTE AUTO 5.65 K/mm3 (1.96-9.15); NEUTROPHILS PERCENT AUTO 76 % (41-73); Platelet Count 171 K/mm3 (150-400); RDW Coefficient Variation 15.2 % (11.7-14.2); RDW Standard Deviation 51.7 fL (35.1-46.3); Red Blood Cell Count 3.95 M/mm3 (4.30-5.90); White Blood Cell Count 7.41 K/mm3 (4.00-11.30)
[2025-01-25 06:00] LABS: Albumin, Blood 2.6 g/dL (3.4-5.0); Albumin/Globulin Ratio 0.8 (0.8-1.8); Bilirubin, Total 0.3 mg/dL (0.1-1.0); Bun/Creatinine Ratio 33.9 (12.0-20.0); Calcium, Blood 8.6 mg/dL (8.5-10.1); Creatinine, Blood 1.24 mg/dL (0.60-1.20); Globulin, Blood 3.4 g/dL (2.2-4.0); Potassium, Blood 3.7 mmol/L (3.5-5.5)
[2025-01-25] MEDS ORDERED: Losartan Potassium 25 MG Tab PO SCH (09:00)
--- NOTE | 2025-01-25 17:12 | NUR ---
SHIFT SUMMARY PT IS A/OX3, CONFUSION AND FORGETFUL AT TIMES. HARD OF HEARING. NO ACUTE CHANGES THROUGHOUT THIS SHIFT. PT WORKED WITH PT THIS AFTERNOON, UP WITH 1 PERSON ASSIST WITH FWW. ON 4L NC, SATS >92%. PT FORGETFUL AT TIMES AND WILL REMOVE THE NC, DESATS TO THE LOW 80'S. CONT PULSE OX IN PLACE. BILAT NEPHROSTOMIES PATENT AND DRAINING CLEAR YELLOW URINE WITH LITTLE OUTPUT, THE RIGHT WITH MORE OUTPUT THAN THE LEFT. RECIEVING OXYCODONE FOR CHRONIC BACK PAIN PER NOV.
[2025-01-26 03:49] VITALS: BP 123/83
[2025-01-26 05:55] LABS: Bun/Creatinine Ratio 33.3 (12.0-20.0); Calcium, Blood 8.3 mg/dL (8.5-10.1); Creatinine, Blood 1.08 mg/dL (0.60-1.20); Potassium, Blood 4.3 mmol/L (3.5-5.5)
--- NOTE | 2025-01-26 06:07 | NUR ---
SHIFT SUMMARY NOC PT A/O X 3-4. FORGETFUL AT TIMES AND TAKES OFF O2 AND DESATS INTO LOW 80'S. STILL ON 4-5L/NC TO MAINTAIN SPO2 >92% ON BIOX. BP HAS BEEN STABLE. PT ON TELE SINUS RHYTHM IN 60'S AND RN VERIFIED RHYTHM STRIP. BILATERAL NEPRHOSTOMY'S IN PLACE WITH GOOD OUTPUT OUT OF R SIDE, BUT VERY MINIMAL OUT OF L SIDE. PT CHRONIC BACK AND STOMACH PAIN BEING MANAGED PER EMAR. IV ABX PER EMAR. PT CURRENTLY RESTING WITH BED IN LOWEST POSITION, AND CALL LIGHT WITHIN REACH.
[2025-01-26 07:46] VITALS: BP 118/73
[2025-01-26 11:38] VITALS: BP 116/73
[2025-01-26 14:33] LABS: CORONAVIRUS COVID-19 AG Negative (NEGATIVE)
--- NOTE | 2025-01-26 14:38 | NUR ---
CALLED REPSHARONRT TO ANJELICA. AT [facility], JOSE M.
--- NOTE | 2025-01-26 16:06 | NUR ---
TRANSPORT RECEIVED 1540 PT TO [facility]. IV REMOVED INTACT. TELE REMOVED AND RETURNED.
[2025-01-27] MEDS ORDERED: ALBU90OI INH (08:23)
[2025-01-27] MEDS ORDERED: Calcium Carbon500 MG PO (08:24)
[2025-01-27] MEDS ORDERED: SENN187 PO (08:26)
[2025-01-27] MEDS ORDERED: OXAYDO5 M1 PO (08:26)
[2025-01-27] MEDS ORDERED: VISBIOME 112.51 EACH PO (08:27)
== END 2025-01-26 15:43 | DRG 193 ==
LOC: ER 15:00 → MEDS 21:51 → ERHOLD 21:51 → MEDS 21:51
PROVIDERS: Family Medicine; Internal Medicine; Student in an Organized Health Care Education/Training Program; ADMIT Internal Medicine
DX: J18.9 Pneumonia, unspecified organism (principal); J96.01 Acute respiratory failure with hypoxia; J44.0 Chronic obstructive pulmonary disease with (acute) lower respiratory infection; J90 Pleural effusion, not elsewhere classified; I10 Essential (primary) hypertension; D64.9 Anemia, unspecified; J84.10 Pulmonary fibrosis, unspecified; M19.90 Unspecified osteoarthritis, unspecified site; F41.9 Anxiety disorder, unspecified; F43.10 Post-traumatic stress disorder, unspecified; I25.10 Atherosclerotic heart disease of native coronary artery without angina pectoris; E78.5 Hyperlipidemia, unspecified; E88.09 Other disorders of plasma-protein metabolism, not elsewhere classified; Z93.6 Other artificial openings of urinary tract status; Z99.81 Dependence on supplemental oxygen; Z85.51 Personal history of malignant neoplasm of bladder; Z95.5 Presence of coronary angioplasty implant and graft; I25.2 Old myocardial infarction; Z98.890 Other specified postprocedural states; Z88.8 Allergy status to other drugs, medicaments and biological substances; Z79.82 Long term (current) use of aspirin; Z79.02 Long term (current) use of antithrombotics/antiplatelets; Z79.899 Other long term (current) drug therapy
CPT/HCPCS: 36415; 71045; 71260; 80048; 80053; 83880; 84145; 84484; 85025; 85379; 87426-QW; 93005; 93010; 93306; 94640; 94664; 94762; 96374; 96375; 97110; 97112; 97161; 97530; 99285-25; A9270; G0378; J0456; J0696; J1644; J7030; J7050; P9047; Q9967

== ENCOUNTER 2025-01-27 02:32 | Observation (INO) | payer OTHER, MEDICARE ==
[~2025-01-27] VITALS: Ht 180.3 cm; Wt 74.5 kg
[~2025-01-27 02:32] MED LIST changes: -Furosemide 40 MG Tab PO ONE; +LOSA25 PO; -LOSARTAN POTAS100 M1 PO
[2025-01-27 03:38] LABS: BASOPHILS ABSOLUTE AUTO 0.03 K/mm3 (0.00-0.23); BASOPHILS PERCENT AUTO 0 % (0-2); EOSINOPHILS PERCENT AUTO 0 % (0-6); Hematocrit 37.6 % (37.0-53.0); Hemoglobin 12.2 g/dL (13.5-17.5); IMMATURE GRAN ABSOLUTE AUTO 0.02 K/mm3 (0.00-0.10); IMMATURE GRAN PERCENT AUTO 0 % (0-1); LYMPHOCYTES ABSOLUTE AUTO 0.64 K/mm3 (0.84-5.20); LYMPHOCYTES PERCENT AUTO 8 % (21-46); MONOCYTES ABSOLUTE AUTO 0.88 K/mm3 (0.16-1.47); MONOCYTES PERCENT AUTO 11 % (4-13); Mean Corpuscular HGB 28.7 pg (26.0-34.0); Mean Corpuscular HGB Conc 32.4 g/dL (31.5-36.5); Mean Corpuscular Volume 89 fL (80-100); Mean Platelet Volume 10.9 fL (9.1-12.4); NEUTROPHILS ABSOLUTE AUTO 6.76 K/mm3 (1.96-9.15); NEUTROPHILS PERCENT AUTO 81 % (41-73); Platelet Count 177 K/mm3 (150-400); RDW Coefficient Variation 15.2 % (11.7-14.2); RDW Standard Deviation 48.8 fL (35.1-46.3); Red Blood Cell Count 4.25 M/mm3 (4.30-5.90); White Blood Cell Count 8.33 K/mm3 (4.00-11.30)
[2025-01-27 04:00] LABS: Albumin, Blood 2.2 g/dL (3.4-5.0); Albumin/Globulin Ratio 0.6 (0.8-1.8); Bilirubin, Total 0.2 mg/dL (0.1-1.0); Bun/Creatinine Ratio 31.1 (12.0-20.0); Calcium, Blood 8.5 mg/dL (8.5-10.1); Creatinine, Blood 0.96 mg/dL (0.60-1.20); Globulin, Blood 3.4 g/dL (2.2-4.0); Potassium, Blood 4.1 mmol/L (3.5-5.5); Total Protein, Blood 5.6 g/dL (6.4-8.2)
[2025-01-27] MEDS ORDERED: Acetaminophen 325 MG TABLET PO PRN (05:45)
[2025-01-27] MEDS ORDERED: Ondansetron HCl 2 MG / ML 2ML Vial IV PRN (05:50)
[2025-01-27] MEDS ORDERED: Lactated Ringer's 1,000 ML IV SCH (06:00)
[2025-01-27] MEDS ORDERED: OxyCODONE HCL 5 MG TAB PO PRN ×2 (06:45→10:55)
[2025-01-27] MEDS ORDERED: Sennosides 8.6 MG Tab PO PRN (06:45)
[2025-01-27] MEDS ORDERED: Ampicillin Sod/Sulbactam Sod 3 GM in NS 100 ML IV SCH (07:00)
--- NOTE | 2025-01-27 07:19 | NUR ---
RECEIEVED REPORT FROM HÉCTOR
[2025-01-27 08:08] VITALS: BP 167/98
[2025-01-27] MEDS ORDERED: ALBU90OI INH (08:23)
[2025-01-27] MEDS ORDERED: Calcium Carbon500 MG PO (08:24)
[2025-01-27] MEDS ORDERED: SENN187 PO (08:26)
[2025-01-27] MEDS ORDERED: OXAYDO5 M1 PO (08:26)
[2025-01-27] MEDS ORDERED: VISBIOME 112.51 EACH PO (08:27)
[2025-01-27] MEDS ORDERED: Lactobacil 2-S.Thermo-Bifido 1 1 Cap PO SCH (09:00)
[2025-01-27] MEDS ORDERED: Docusate Sodium 100 MG Cap PO SCH (09:00)
[2025-01-27] MEDS ORDERED: Atorvastatin 40 MG Tab PO SCH (09:00)
[2025-01-27] MEDS ORDERED: NS 250 ML IV PRN (09:05)
--- NOTE | 2025-01-27 10:54 | NUR ---
Pt. is awake in bed and welcomes my visit. Pt. to pleasant but is unsettled that he can't get a response from his nurse. Normalize the Pt. experience. Facilitated an update as the Pt. is a hospital readmit. Pt. displayed evisdence of being discouraged that he didn't repsond to treatment. Listen with empathy and a calming presence. Prayed with Pt. Pt. verbalized gratitude for the spiritual care visit. This airconditioning plant operator contacted Pts. nurse who immediately went to bedside.
--- NOTE | 2025-01-27 14:12 | NUR ---
INFORMED MD THAT MRI WOULDN'T BE PERFOMED INPATIENT, WOULD NEED TO BE DONE OUTPATIENT. MD UNDERSTOOD THE REASONING.
[2025-01-27 16:02] VITALS: BP 138/97
--- NOTE | 2025-01-27 18:39 | NUR ---
SHIFT SUMMARY PT AOX4, COOPERATIVE, ABLE TO MAKE NEEDS KNOWN. PT ADMITTED EARLIER THIS SHIFT. TRANSFERS VIA 1 PERSON ASSIST TO BATHROOM OR COMMODE. VERY SLOW MOVING. HAS BILATERAL NEPHROSTOMY TUBES. RIGHT IS DRAINING YELLOW URINE AND LEFT IS DRAINING RED FLUID. LEFT INSERTION SITE BLEEDING EARLIER, APPLIED GAUZE AND PRESSURE. WILL BE NPO AFTER MIDNIGHT FOR IR PROCEDURE TOMORROW. BED IN LOWEST POSITION, CALL LIGHT WITHIN REACH.
--- NOTE | 2025-01-27 18:54 | NUR ---
PALLIATIVE CARE VISIT: REASON FOR VISIT-GOALS OF CARE MET WITH PT IN HIS ROOM. PT IS AWAKE AND ABLE TO PARTICIPATE IN A MEANINGFUL DISCUSSION. DISCUSSED GOALS OF CARE AND CODE STATUS. PT EDUCATED ON RISKS SUCH FRACTURED RIBS WITH CPR. EDUCATED PT ON DIFFERENCE OF FULL CODE VS DNR CODE STATUS. PT WISHES TO REMAIN A FULL CODE. DISCUSSED PT PLANS REGARDING HIS NEW DIAGNOSIS OF POSSIBLE BLADDER CANCER. PT DOES HAVE PLANS TO MEET WITH A UROLOGIST TO GET BIOPSY AND DETERMINE IF TREATMENT IS POSSIBLE. DISCUSSED CONCERNS OF LUNG NODULES FOUND ON CT SCAN AND POSSIBLE SPOT ON PELVIC AREA. PT AWARE HE HAS A MRI SCAN. PT WANTS TO SEE WHAT THE MRI SHOWS BEFORE MAKING ANY FURTHER DECISIONS. PT REMAINED CALM THROUGHOUT THE DISCUSSION. APPEARS TO BE APPROPRIATELY PROCESSING NEWS. DISCUSSED SYMPTOM MANAGEMENT. PT REPORTS HE HAS PAIN IN HIS BACK FROM SPINAL STENOSIS AND PLANS TO MEET WITH A NEUROLOGIST IN [place] TO DISCUSS TREATMENT PLAN. PT STATES HE HAS POOR APPETITE BECAUSE THE PAIN CAUSES NAUSEA AT TIMES. PT STATES "FOOD JUST DOESN'T LOOK APPETIZING EITHER". OFFERED ENSURE A NUTRITIONAL REPLACEMENT AND PT STATED HE LIKES CHOCOLATE ENSURES. BROUGHT HIM AN ENSURE. PT REPORTS PAIN IS MANAGED WITH OXYCODONE 5 MG. TAKES ABOUT 20 MINUTES TO TAKE EFFECT. PT DENIES SOB, ANXIETY, CONSTIPATION.
[2025-01-27 19:23] VITALS: BP 129/72
[2025-01-27] MEDS ORDERED: Mirtazapine 15 MG Tab PO SCH (21:00)
--- NOTE | 2025-01-28 04:04 | NUR ---
SHIFT SUMMARY PATIENT HAD NO ACUTE CHANGES. ALERT ORIENTED AND 1-2 ASSIST WITH FWW/GB TO BR. DENIES CHEST PAIN, SOB, AND N/V. REPORTED LEFT RIB PAIN AND OXYCODONE 5 MG GIVEN PER EMAR. CBG 124. ON 4L O2 VIA MASK. BILATERAL NEPHROSTOMY TUBES. PIV INTACT. IV ABXS INFUSED. CALL LIGHT IN REACH. BED IN LOWEST POSITION. WILL CONTINUE TO MONITOR UNTIL DAY SHIFT NURSE ASSUMES CARE.
[2025-01-28 04:09] VITALS: BP 156/97
[2025-01-28 05:49] LABS: BASOPHILS ABSOLUTE AUTO 0.03 K/mm3 (0.00-0.23); BASOPHILS PERCENT AUTO 0 % (0-2); EOSINOPHILS ABSOLUTE AUTO 0.01 K/mm3 (0.00-0.68); EOSINOPHILS PERCENT AUTO 0 % (0-6); Hematocrit 41.5 % (37.0-53.0); Hemoglobin 12.8 g/dL (13.5-17.5); IMMATURE GRAN ABSOLUTE AUTO 0.04 K/mm3 (0.00-0.10); IMMATURE GRAN PERCENT AUTO 0 % (0-1); LYMPHOCYTES ABSOLUTE AUTO 0.76 K/mm3 (0.84-5.20); LYMPHOCYTES PERCENT AUTO 8 % (21-46); MONOCYTES ABSOLUTE AUTO 0.94 K/mm3 (0.16-1.47); MONOCYTES PERCENT AUTO 10 % (4-13); Mean Corpuscular HGB 27.8 pg (26.0-34.0); Mean Corpuscular HGB Conc 30.8 g/dL (31.5-36.5); Mean Corpuscular Volume 90 fL (80-100); Mean Platelet Volume 11.2 fL (9.1-12.4); NEUTROPHILS ABSOLUTE AUTO 8.04 K/mm3 (1.96-9.15); NEUTROPHILS PERCENT AUTO 82 % (41-73); Platelet Count 196 K/mm3 (150-400); RDW Coefficient Variation 15.2 % (11.7-14.2); RDW Standard Deviation 50.5 fL (35.1-46.3); Red Blood Cell Count 4.61 M/mm3 (4.30-5.90); White Blood Cell Count 9.82 K/mm3 (4.00-11.30)
[2025-01-28 06:13] LABS: Albumin, Blood 2.2 g/dL (3.4-5.0); Albumin/Globulin Ratio 0.6 (0.8-1.8); Bilirubin, Total 0.3 mg/dL (0.1-1.0); Bun/Creatinine Ratio 25.8 (12.0-20.0); Calcium, Blood 8.8 mg/dL (8.5-10.1); Creatinine, Blood 0.97 mg/dL (0.60-1.20); Globulin, Blood 3.7 g/dL (2.2-4.0); Magnesium, Blood 1.6 mg/dL (1.6-2.4); Potassium, Blood 4.6 mmol/L (3.5-5.5); Total Protein, Blood 5.9 g/dL (6.4-8.2)
[2025-01-28 07:29] VITALS: BP 144/78
--- NOTE | 2025-01-28 07:48 | NUR ---
ASSUMPTION OF CARE: ASSUMED CARE OF PATIENT. AWAKE ASLEEP DURING SHIFT CHANGE REPORT. LYING IN BED ON LEFT SIDE. BREATHING EVEN AND UNLABORED ON 4LPM/MASK. C/O PAIN; REQUESTING PIN MED. NPO FOR NEPHROSTOMY PLACEMENT TODAY. BED IN LOWEST POSITION. CALL LIGHT WITHIN REACH. NO ACUTE NEEDS.
[2025-01-28] MEDS ORDERED: NS 500 ML IV ONE (10:22)
--- NOTE | 2025-01-28 10:26 | NUR ---
[facility] DAY SURGERY TO BEDSIDE FOR TRANSPORT TO IR.
[2025-01-28] MEDS ORDERED: FentaNYL Citrate 50 MCG/ML 2 ML Injection ONE (10:44)
[2025-01-28] MEDS ORDERED: Midazolam HCl 1MG / ML 2ML Vial ONE (10:44)
[2025-01-28] MEDS ORDERED: NS 1,000 ML IV ONE (10:44)
[2025-01-28 12:50] VITALS: BP 138/81
--- NOTE | 2025-01-28 13:13 | NUR ---
PATIENT REFUSED CONTINUOUS BiOx WHILE SLEEPING SO HE COULD "KEEP HIS HANDS BELOW THE BLANKETS WITHOUT IT GOING OFF". DECLINED REPOSITIONING; WILL BE DCing TODAY.
[2025-01-28] MEDS ORDERED: ACET325 PO (13:19)
[2025-01-28] MEDS ORDERED: DOCU100 PO (13:20)
[2025-01-28] MEDS ORDERED: MIRT15 PO (13:21)
[2025-01-28 15:33] LABS: CORONAVIRUS COVID-19 AG Negative (NEGATIVE)
--- NOTE | 2025-01-28 19:19 | NUR ---
DISCHARGE SUMMARY: A&Ox4. PLEASANT AND COOPERATIVE WITH CARE. CALLS APPROPRIATELY AND IS ABLE TO ADVOCATE NEEDS EFFECTIVELY. BEDREST. CONTINENT OF BOWEL AND BLADDER; RIGHT NEPHROSTOMY PATENT AND DRAINING URINE TO GRAVITY. MEDS WHOLE c FLUIDS. NO TELE. MEDICATED PRN PAIN. INSTRUCTED TO FOLLOW-UP WITH PCP AND UROLOGY AND ONCOLOGY. LEFT FLOOR AT 1330 WITH ALL BELONGINGS AND DISCHARGE PACKET, [facility].
== END 2025-01-28 15:25 ==
LOC: ER 02:32 → MEDS 02:33
PROVIDERS: Emergency Medicine; Internal Medicine; ADMIT Student in an Organized Health Care Education/Training Program
DX: T83.022A Displacement of nephrostomy catheter, initial encounter (principal); Y82.8 Other medical devices associated with adverse incidents; J90 Pleural effusion, not elsewhere classified; C67.9 Malignant neoplasm of bladder, unspecified; C79.89 Secondary malignant neoplasm of other specified sites; J96.11 Chronic respiratory failure with hypoxia; R18.8 Other ascites; J44.9 Chronic obstructive pulmonary disease, unspecified; I25.10 Atherosclerotic heart disease of native coronary artery without angina pectoris; E78.5 Hyperlipidemia, unspecified; I25.2 Old myocardial infarction; I10 Essential (primary) hypertension; Z95.5 Presence of coronary angioplasty implant and graft; Z87.891 Personal history of nicotine dependence; Z88.8 Allergy status to other drugs, medicaments and biological substances; Z79.82 Long term (current) use of aspirin; Z79.899 Other long term (current) drug therapy
CPT/HCPCS: 36415; 50432; 74177; 76604; 76937; 80053; 82947; 83735; 85025; 87426-QW; 96361; 96365-59; 96366; 96376; 99152; 99153; 99285-25; A9270; C1729; C1769; C1887; G0378; J0295; J2250; J3010; J7030; J7040; J7120; Q9967

== ENCOUNTER 2025-02-25 06:00 | Inpatient (IN) | payer OTHER ==
[~2025-02-25] VITALS: Ht 180.3 cm; Wt 70.3 kg
[~2025-02-25 06:00] MED LIST changes: +ACET325 PO; +ALBU90OI INH; +Calcium Carbon500 MG PO; +MIRT15 PO; +OXAYDO5 M1 PO; +SENN187 PO; +VISBIOME 112.51 EACH PO
[2025-02-25 06:49] LABS: BASOPHILS ABSOLUTE AUTO 0.05 K/mm3 (0.00-0.23); BASOPHILS PERCENT AUTO 1 % (0-2); EOSINOPHILS ABSOLUTE AUTO 0.01 K/mm3 (0.00-0.68); EOSINOPHILS PERCENT AUTO 0 % (0-6); Hematocrit 39.2 % (37.0-53.0); Hemoglobin 12.4 g/dL (13.5-17.5); IMMATURE GRAN ABSOLUTE AUTO 0.09 K/mm3 (0.00-0.10); IMMATURE GRAN PERCENT AUTO 1 % (0-1); LYMPHOCYTES ABSOLUTE AUTO 0.45 K/mm3 (0.84-5.20); LYMPHOCYTES PERCENT AUTO 5 % (21-46); MONOCYTES ABSOLUTE AUTO 0.91 K/mm3 (0.16-1.47); MONOCYTES PERCENT AUTO 10 % (4-13); Mean Corpuscular HGB 28.7 pg (26.0-34.0); Mean Corpuscular HGB Conc 31.6 g/dL (31.5-36.5); Mean Corpuscular Volume 91 fL (80-100); Mean Platelet Volume 11.5 fL (9.1-12.4); NEUTROPHILS ABSOLUTE AUTO 8.09 K/mm3 (1.96-9.15); NEUTROPHILS PERCENT AUTO 84 % (41-73); NRBC ABSOLUTE 0.03 K/mm3 (0.00-0.02); NRBC Auto 0.3 /100 WBC (0.0-0.2); Platelet Count 184 K/mm3 (150-400); RDW Coefficient Variation 17.8 % (11.7-14.2); RDW Standard Deviation 53.5 fL (35.1-46.3); Red Blood Cell Count 4.32 M/mm3 (4.30-5.90)
[2025-02-25 07:08] LABS: Albumin, Blood 1.8 g/dL (3.4-5.0); Albumin/Globulin Ratio 0.4 (0.8-1.8); Bilirubin, Total 0.4 mg/dL (0.1-1.0); Calcium, Blood 7.8 mg/dL (8.5-10.1); Potassium, Blood 3.6 mmol/L (3.5-5.5); Total Protein, Blood 5.8 g/dL (6.4-8.2)
[2025-02-25] MEDS ORDERED: Ondansetron HCl 2 MG / ML 2ML Vial IV PRN (09:30)
[2025-02-25] MEDS ORDERED: Acetaminophen 325 MG TABLET PO PRN (09:35)
[2025-02-25] MEDS ORDERED: Albuterol 2.5 MG/3 ML VIAL INH PRN (09:35)
[2025-02-25] MEDS ORDERED: TraMADol HCl 50 MG Tab PO PRN (09:35)
[2025-02-25] MEDS ORDERED: Calcium Carbonate 500 MG Tab Chew PO PRN (09:40)
[2025-02-25] MEDS ORDERED: Albuterol HFA200 ACT/6.7 GM INH INH PRN (09:45)
[2025-02-25] MEDS ORDERED: Protein Supplement 30 ML UD PO SCH (10:00)
[2025-02-25] MEDS ORDERED: Bumetanide 0.25 MG/ML 4ML ViaL IV SCH (10:00)
[2025-02-25 10:42] VITALS: BP 129/85
[2025-02-25 15:44] VITALS: BP 123/78
--- NOTE | 2025-02-25 19:06 | NUR ---
SHIFT SUMMARY NEW ER ADMIT THIS SHIFT, VSS, NO ACUTE CHANGES, HAS SLEPT T/O MOST OF SHIFT, HAS REFUSED ALL MEAL TRAYS, 2 BM'S, REPORTS ABD PAIN (STATES NORMAL), DRINKS FRUIT JUICE T/O THE DAY. UP WITH 1P ASSIST AND FWW TO BR/BSC, CONTINENT X2, INDEP W/URINAL. REPORT GIVEN TO DEJAH MARX
[2025-02-25 19:53] VITALS: BP 125/91
[2025-02-25] MEDS ORDERED: Mirtazapine 15 MG Tab PO SCH (21:00)
[2025-02-25] MEDS ORDERED: Sennosides 8.6 MG Tab PO SCH (21:00)
[2025-02-25] MEDS ORDERED: Docusate Sodium 100 MG Cap PO SCH (21:00)
[2025-02-26] VITALS (7 sets, daily range): BP systolic 115–144; BP diastolic 70–101
--- NOTE | 2025-02-26 04:12 | NUR ---
SHIFT SUMMARY A&O,ATKA,PLEASANT ,VOICES NEEDS,USED CALL LIGHT AND WAITS FOR ASSIST, TO BEDSIDE COMMODE BMX2,SMALL YELLOW VOID,ALSO REMAINING NEPHROSTOMY TUBE DRAINING-NPO AFTER MID FOR REPLACEMENT OF OTHER (DISLODGED) NEPHROSTOMY TUBE) SCDs ON, FINE CRACKLES NOTED IN RLL & COUGHING AT TIMES-DEEP BREATHING ENCOURAGED AD PT COMPLIANT. VSS.
[2025-02-26 06:24] LABS: BASOPHILS ABSOLUTE AUTO 0.07 K/mm3 (0.00-0.23); BASOPHILS PERCENT AUTO 1 % (0-2); EOSINOPHILS PERCENT AUTO 0 % (0-6); Hematocrit 42.6 % (37.0-53.0); Hemoglobin 13.4 g/dL (13.5-17.5); IMMATURE GRAN ABSOLUTE AUTO 0.08 K/mm3 (0.00-0.10); IMMATURE GRAN PERCENT AUTO 1 % (0-1); LYMPHOCYTES PERCENT AUTO 7 % (21-46); MONOCYTES ABSOLUTE AUTO 0.85 K/mm3 (0.16-1.47); MONOCYTES PERCENT AUTO 9 % (4-13); Mean Corpuscular HGB 29.1 pg (26.0-34.0); Mean Corpuscular HGB Conc 31.5 g/dL (31.5-36.5); Mean Corpuscular Volume 93 fL (80-100); Mean Platelet Volume 11.5 fL (9.1-12.4); NEUTROPHILS ABSOLUTE AUTO 8.03 K/mm3 (1.96-9.15); NEUTROPHILS PERCENT AUTO 83 % (41-73); Platelet Count 196 K/mm3 (150-400); RDW Coefficient Variation 18.3 % (11.7-14.2); RDW Standard Deviation 54.4 fL (35.1-46.3); White Blood Cell Count 9.73 K/mm3 (4.00-11.30)
[2025-02-26 07:00] LABS: Albumin, Blood 2.2 g/dL (3.4-5.0); Albumin/Globulin Ratio 0.5 (0.8-1.8); Bilirubin, Total 0.5 mg/dL (0.1-1.0); Bun/Creatinine Ratio 30.7 (12.0-20.0); Calcium, Blood 8.4 mg/dL (8.5-10.1); Creatinine, Blood 1.14 mg/dL (0.60-1.20); Globulin, Blood 4.4 g/dL (2.2-4.0); Potassium, Blood 3.7 mmol/L (3.5-5.5); Total Protein, Blood 6.6 g/dL (6.4-8.2)
[2025-02-26] MEDS ORDERED: Enoxaparin 40 MG/0.4 ML SYR SC SCH (09:00)
[2025-02-26] MEDS ORDERED: Aspirin 81 MG Chew PO SCH (09:00)
[2025-02-26] MEDS ORDERED: Atorvastatin 40 MG Tab PO SCH (09:00)
[2025-02-26] MEDS ORDERED: OxyCODONE HCL 5 MG TAB PO PRN (15:15)
[2025-02-26] MEDS ORDERED: NS 250 ML IV ONE ×2 (15:21→16:13)
[2025-02-26] MEDS ORDERED: Midazolam HCl 1MG / ML 2ML Vial ONE (16:12)
[2025-02-26] MEDS ORDERED: FentaNYL Citrate 50 MCG/ML 2 ML Injection ONE (16:13)
--- NOTE | 2025-02-26 18:26 | NUR ---
Pt. had just returned form surgery and was resting with his dinner meal in front of him, but responded when I came to bedside. Pt. displayed some [place], but welcomed my visit. This sales developer has visited this Pt. on previous hospitalizations. Rapport is re-established, yet the Pt. still seemed groggy. Prayed with the Pt. Pt. verbalized gratitude for the spiritual care visit and welcomed this sales developer to return.
--- NOTE | 2025-02-26 19:29 | NUR ---
SHIFT SUMMARY PT A&OX4. PT [place]. PT ADMITTED FOR NEPHROSTOMY TUBE DISPLACEMENT, PT REPORTS CHRONIC BACK PAIN. PAIN MANAGED PER EMAR, NEPHROSTOMY TUBE WAS REPLACED TODAY. DR. OQUENDO ORDERED ABD BINDER AT NIGHT FOR PT, REPORTED TO NIGHT RN. PT WEARS 2L OF O2. PT DESATS TO LOW 80'S, PT ON 3L OF O2 AT TIMES. VSS. PT IS SBA W FWW AND GAITBELT. PT REPORTS WEAKNESS. PRINTER TECHNICIAN CAME TO SEE PT TODAY. PT EDUCATED ABOUT INCENTIVE SPIROMETER USE TODAY. PT IN BED, BED AT LOWEST POSTIION, CALL LIGHT IN REACH.
--- NOTE | 2025-02-27 03:41 | NUR ---
SHIFT SUMMARY ADMITTED FOR RIGHT NEPHROSTOMY TUBE REPLACEMENT. FULL CODE. HE FREQUENTLY DISLODGES ONE OR THE OTHER OF HIS BILATERAL NEPHROSTOMY TUBES. TUBE WAS REPLACED BY IR CONSULT CARTER ON 02/26/25. PLAN IS FOR HIM TO WEAR AN ABDOMINAL BINDER TO PREVENT DISLODGEMENT IN THE FUTURE. WE ARE DIURESING HIM. PALLIATIVE CARE IS CONSULTED. HE IS A [facility]. I DID GIVE PAIN RX THIS SHIFT FOR KNEE PAIN. 2 LPM O2 VIA NC IS HIS BASELINE, BUT WE HAVE HAD TO INCREASE O2 TO 3 LPM DUE TO DESATURATION. 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
[2025-02-27 04:29] VITALS: BP 125/84
[2025-02-27 07:39] VITALS: BP 130/87
[2025-02-27 15:22] VITALS: BP 121/80
[2025-02-27] MEDS ORDERED: Bumetanide 0.25 MG/ML 4ML ViaL IV SCH (18:00)
--- NOTE | 2025-02-27 19:40 | NUR ---
SHIFT SUMMARY PT A&OX4. PT [place]. PT ADMITTED FOR NEPHROSTOMY TUBE DISPLACEMENT. PT REPORTS CHRONIC PAIN, PAIN MANAGED PER EMAR. R NEPH IS INTACT, DRESSING IS C/D/I. PT EDUCATED ON ABD BINDER USE. DR. GOMEZ ORDERED CONT PULSE OX. PT GETS PRN RESPIRATORY TREATMENTS Q4 PRN. PT ON 5L OF O2 VIA N/C. PT O2 DESATS TO MID 80'S.PT WORKED WITH PHYSICAL THERAPY TODAY AND IS A SBA WITH [facility]WW AND GB. PT RECOMENDED HOME HEALTH. INTERNAL AUDIT CONSULTANT CAME TO SEE PT TODAY. PT EDUCATED ON INCENTIVE SPIROMETER USE. VSS. PT IN BED, BED IN LOWEST POSITION, CALL LIGHT IN REACH.
[2025-02-27 20:11] VITALS: BP 138/102
--- NOTE | 2025-02-28 04:00 | NUR ---
PT IS ALERT AND ORIENTED X4. ON 5 L NC DURING SHIFT. PATIENT HAS BILATEAL NEPHROSTOMY TUBES IN PLACE. R NEPHRO TUBE HAS GREATER OUTPUT THAN THE LEFT ONE-PER PATIENT THIS IS NORMAL. OUTPUT FROM R NEPHRO IS CLEAR AND YELLOW. LEFT TUBE HAS MINIMAL DARK OUTPUT. OXYCODONE GIVEN FOR KNEE PAIN. SCDS ON. PATIENT EDUCATED TO USE CALL LIGJT- DEMONSTRATES APPROPRIATE USE. BED IS IN LOW POSITION WITH THE WHEELS LOCKED. CALL LIGHT WITHIN PATIENT REACH.
[2025-02-28 04:29] VITALS: BP 144/107
[2025-02-28 05:34] LABS: BASOPHILS ABSOLUTE AUTO 0.03 K/mm3 (0.00-0.23); BASOPHILS PERCENT AUTO 0 % (0-2); EOSINOPHILS PERCENT AUTO 0 % (0-6); Hematocrit 39.9 % (37.0-53.0); Hemoglobin 12.5 g/dL (13.5-17.5); IMMATURE GRAN ABSOLUTE AUTO 0.05 K/mm3 (0.00-0.10); IMMATURE GRAN PERCENT AUTO 1 % (0-1); LYMPHOCYTES ABSOLUTE AUTO 0.45 K/mm3 (0.84-5.20); LYMPHOCYTES PERCENT AUTO 5 % (21-46); MONOCYTES PERCENT AUTO 9 % (4-13); Mean Corpuscular HGB 28.9 pg (26.0-34.0); Mean Corpuscular HGB Conc 31.3 g/dL (31.5-36.5); Mean Corpuscular Volume 92 fL (80-100); Mean Platelet Volume 12.1 fL (9.1-12.4); NEUTROPHILS ABSOLUTE AUTO 7.97 K/mm3 (1.96-9.15); NEUTROPHILS PERCENT AUTO 86 % (41-73); Platelet Count 148 K/mm3 (150-400); RDW Coefficient Variation 18.3 % (11.7-14.2); RDW Standard Deviation 56.1 fL (35.1-46.3); Red Blood Cell Count 4.32 M/mm3 (4.30-5.90)
[2025-02-28 06:00] LABS: Calcium, Blood 8.8 mg/dL (8.5-10.1); Creatinine, Blood 1.03 mg/dL (0.60-1.20); Potassium, Blood 3.4 mmol/L (3.5-5.5)
[2025-02-28] MEDS ORDERED: Potassium Chloride 20 MEQ TabCR PO ONE ×2 (07:40→08:15)
[2025-02-28 08:00] VITALS: BP 139/85
[2025-02-28 15:41] VITALS: BP 129/76
[2025-02-28] MEDS ORDERED: Diclofenac Sodium 100 GM TUBE TOP PRN (16:55)
--- NOTE | 2025-02-28 18:22 | NUR ---
SHIFT SUMMARY PT AOX3/4, COOPERATIVE, ABLE TO MAKE NEEDS KNOWN. PT IS BEDREST WITH COMMODE PRIVELEGES. ON 2-5L O2 DEPENDING ON SATURATION. DIURESING CURRENLTY. ABD BINDER REPLACED DUE TO EMESIS EPISODE IN AM. PT PO INTAKE IS POOR AND DOES NOT WANT TO EAT. BED IN LOWEST POSITION, CALL LIGHT WITHIN REACH.
[2025-02-28 20:04] VITALS: BP 126/82
--- NOTE | 2025-03-01 03:42 | NUR ---
PT ALERT AND ORIENTED X4 T/O SHIFT. PATIENT HAS BILATERAL NEPHROSTOMIES IN PLACE. R NEPHRO TUBE HAS ADEQUATE OUTPUT THAT IS YELLOW; L NEPHRO TUBE HAS MINMIMAL OUTPUT. ABDOMINAL BINDER IN PLACE. PATIENT ON 5 L NC DURING SHIFT. PATIENT HAD C/O AN UPSET STOMACH AND NAUSEA- TUMS AND ZOFRAN WERE GIVEN. PATIENT HAD C/O KNEE PAIN FOR WHICH OXYCODONE WAS GIVEN AND AN ICE PACK WAS APPLIED. PATIENT DEMONSTRATES PROPER USE OF CALL LIGHT AND ORIENTED TO OWN ABILITY. BED IS IN LOW POSITION, WHEELS ARE LOCKED AND CALL LIGHT WITHIN PATIENTS REACH.
[2025-03-01 07:40] VITALS: BP 150/94
[2025-03-01] MEDS ORDERED: OxyCODONE HCL 5 MG TAB PO PRN (12:25)
--- NOTE | 2025-03-01 15:11 | NUR ---
PATIENT HAS TWO NEPHROSTOMY BAGS, PATIENT FELT HE HAD TO HAVE A BM AND SAT ON THE BSC. NOTHING CAME OUT BUT I FOUND WHAT LOOKED LIKE URINE IN THE BSC. PATIENT HAS BLADDER CANCER.
--- NOTE | 2025-03-01 16:50 | NUR ---
A&O X4. PT IS ON 5LPM OXYGEN VIA NC (BASELINE 2LPM). LEFT NEPHROSTOMY NOT DRAINING VERY MUCH, RIGHT NEPHROSTOMY DRAINING LOTS OF OUTPUT. NURSE ASSIST WITH FWW TO BEDSIDE COMMODE OR BATHROOM FOR BM'S. PT TOLERATED WEARING THE ABD BINDER ALL DAY, SPENT MOST OF THE DAY RESTING IN BED LISTENING TO MUSIC. DENIED PAIN AND HASN'T REQUESTED ANALGESICS THIS SHIFT. IV IN THE RIGHT FOREARM. PLEASANT AND FOLLOWS CUES DURING CARE.
[2025-03-01 17:27] VITALS: BP 139/77
[2025-03-01 20:03] VITALS: BP 144/86
[2025-03-02 02:32] VITALS: BP 153/91
--- NOTE | 2025-03-02 04:08 | NUR ---
PT ALERT AND ORIENTED X 3-4 AND RINCON. PT ON 5L NC T/O SHIFT. R NEPHROSTOMY HAS ADEQUATE OUTPUT; L NEPHROSTOMY HAS MINIMAL OUTPUT. ABDOMINAL BINDER IN PLACE. PT UP TO BSC WITH FWW AND 1 ASSIST. PT PRODUCED A SMALL FORMED BOWEL MOVEMENT. OXYCODONE GIVE FOR C/O PAIN. PT DEMONSTRATES PROPER USE OF CALL LIGHT AND ORIENTED TO OWN ABILTY. BED IS IN LOW POSITION AND WHEELS LOCKED. CALL LIGHT WITHIN REACH.
[2025-03-02 05:43] LABS: Hematocrit 40.6 % (37.0-53.0); Hemoglobin 12.7 g/dL (13.5-17.5); Mean Corpuscular HGB 28.8 pg (26.0-34.0); Mean Corpuscular HGB Conc 31.3 g/dL (31.5-36.5); Mean Corpuscular Volume 92 fL (80-100); Mean Platelet Volume 12.2 fL (9.1-12.4); Platelet Count 131 K/mm3 (150-400); RDW Coefficient Variation 17.8 % (11.7-14.2); RDW Standard Deviation 57.1 fL (35.1-46.3); Red Blood Cell Count 4.41 M/mm3 (4.30-5.90); White Blood Cell Count 9.42 K/mm3 (4.00-11.30)
[2025-03-02 06:02] LABS: Albumin, Blood 2.1 g/dL (3.4-5.0); Anion Gap 7 mmol/L (3-11); Blood Urea Nitrogen 25 mg/dL (8-24); Bun/Creatinine Ratio 28.1 (12.0-20.0); CO2, Blood 33 mmol/L (21-32); Chloride, Blood 100 mmol/L (98-108); Creatinine, Blood 0.89 mg/dL (0.60-1.20); Glomerular Filtration Rate 89 (60-); Glucose, Blood 134 mg/dL (70-99); Magnesium, Blood 1.7 mg/dL (1.6-2.4); Phosphorus, Blood 2.7 mg/dL (2.5-4.9); Potassium, Blood 3.2 mmol/L (3.5-5.5); Sodium, Blood 137 mmol/L (136-145)
[2025-03-02] MEDS ORDERED: Potassium Chloride 20 MEQ TabCR PO ONE ×2 (07:15→09:45)
[2025-03-02 07:34] VITALS: BP 157/93
[2025-03-02] MEDS ORDERED: Bumetanide 1 MG Tab PO SCH (09:00)
--- NOTE | 2025-03-02 14:18 | NUR ---
PALLIATIVE CARE VISIT: MET WITH PT IN HIS ROOM. PT IS VERY [place], ALERT AND ABLE TO HAVE MEANINGFUL DISCUSSION. GOC, CODE STATUS AND SYMPTOM MANAGEMENT DISCUSSED. GOC: PT WISHES TO CONTINUE CANCER TREATMENT. PAIN MANAGEMENT: PT REPORTS HIS PAIN IS CURRENTLY TOLERABLE AT THE DOSE HE IS GETTING NOW. PT DOES REPORT HE STILL HAS PAIN BUT STATES IT IS TOLERABLE ONCE THE MEDICATION TAKES EFFECT. PT DENIES ANY OTHER NEEDS FOR SYMPTOM MANAGEMENT. DENIES CONSTIPATION, ANXIETY, SLEEP DIFFICULTY OR DECREASED APPETITE. POLST. EDUCATED PT ON FULL CODE VS DNR MEASURES. RISKS VS BENEFITS ALSO DISCUSSED. PT STATED HE HAS A FRACTURED RIB AND DOES NOT WANT TO RISK HAVING MORE FRACTURED RIBS BUT HE WOULD WANT TO BE INTUBATED AND SHOCKED IF IT WOULD SAVE HIS LIFE. POLST COMPLETED FULL CODE WITH FULL MEASURES ACCEPT NO CHEST COMPRESSIONS IN OTHER INSTRUCTIONS. POLST SIGNED BY AND GIVEN BACK TO PT. COPY PLACED ON CHART.
[2025-03-02] MEDS ORDERED: BUME1 PO (15:00)
--- NOTE | 2025-03-02 16:00 | NUR ---
PALLIATIVE CARE NOTE: SENT REFERRAL TO [facility] FOR FOLLOW-UP ON CANCER TREATMENT AND SYMPTOM MANAGEMENT.
[2025-03-02 16:30] VITALS: BP 143/85
--- NOTE | 2025-03-02 17:17 | NUR ---
SHIFT SUMMARY PT AOX4, COOPERATIVE, ABLE TO MAKE NEEDS KNOWN. HOME O2 EVAL PERFORMED AT PT REQUIRES 8L O2. PULSE OX ACTIVE. PT DID NOT ATTEND RADIOLOGY APPOINTMENT THIS AFTERNOON DUE TO NOT BEING ABLE TO DC DUE TO HIGH O2 DEMANDS THAN PREVIOUSLY NOTED. CAREGIVER SUPPOSED TO COME IN AND LEAVE SCHEDULE OF RADIOLOGY APPOINTMENTS FOR REST OF WEEK FOR PT TO ATTEND AND WE CAN SCHEDULE TRANSPORT. BED IN LOWEST POSITION, CALL LIGHT WITHIN REACH.
[2025-03-02 20:39] VITALS: BP 156/92
--- NOTE | 2025-03-03 03:16 | NUR ---
SHIFT SUMMARY NO ACUTE EVENTS DURING THIS SHIFT. MEDICATED FOR BACK PAIN PER EMAR. O2 @8L VIA HIGH FLOW NASAL CANNULA, O2 SAT'S LOW 90'S. CONTINUING PT EDUCATION. PULSE OXIMETER IN PLACE. RIGHT NEPHROSTOMY DRAINING WELL TEA COLOR URINE. LEFT HAS A MINIMAL OUTPUT. ABD BINDER IN PLACE. @[facility] CAREGIVER JULIANE BY THE BEDSIDE. PER CHARGE NURSE OFE, THE TRANSPORT HAVE BEEN ARRANGED. [facility]. BED AT THE LOWEST POSITION, CALL LIGHT W/I REACH. PT IS A/OX4, ABLE TO MAKE HIS NEEDS KNOWN AND COOPERATIVE WITH CARE.
[2025-03-03 05:03] VITALS: BP 112/76
[2025-03-03 07:42] VITALS: BP 139/82
--- NOTE | 2025-03-03 14:24 | NUR ---
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 NEEDED RX FAXED TO [facility] PER CAREGIVER REQUEST. NO IV ACCESS TO BE REMOVED OR TELE. PT ABLE TO STAND AND PIVOT TRANSFER TO WHEELCHAIR WITH ASSISTANCE FROM CAREGIVER. REVIEWED DISCHARGE PAPERWORK AND NEW RX WITH PT AND CAREGIVER. PT WHEELED DOWN BY TO PRIVATE VEHICLE.
--- NOTE | 2025-03-03 15:06 | NUR ---
[facility] called and requested DC summary, ER documentation and H&P to process referral. printed and sent documents via fax.
== END 2025-03-03 14:21 | disposition home health service (06) | DRG 698 ==
LOC: ER 06:00 → ERHOLD 06:01 → MEDS 06:01
PROVIDERS: Emergency Medicine; Internal Medicine; ADMIT Internal Medicine
PROC: 0T25X0Z Change Drainage Device in Kidney, External Approach (ICD-10-PCS; principal; 2025-02-26)
DX: T83.022A Displacement of nephrostomy catheter, initial encounter (principal); E43 Unspecified severe protein-calorie malnutrition; J96.21 Acute and chronic respiratory failure with hypoxia; C78.02 Secondary malignant neoplasm of left lung; C78.01 Secondary malignant neoplasm of right lung; C79.51 Secondary malignant neoplasm of bone; N13.30 Unspecified hydronephrosis; C67.9 Malignant neoplasm of bladder, unspecified; J44.9 Chronic obstructive pulmonary disease, unspecified; I10 Essential (primary) hypertension; R60.0 Localized edema; E78.5 Hyperlipidemia, unspecified; D63.0 Anemia in neoplastic disease; J84.10 Pulmonary fibrosis, unspecified; I25.10 Atherosclerotic heart disease of native coronary artery without angina pectoris; Z96.652 Presence of left artificial knee joint; Z99.81 Dependence on supplemental oxygen; Z68.21 Body mass index [BMI] 21.0-21.9, adult; Z88.8 Allergy status to other drugs, medicaments and biological substances; Z79.82 Long term (current) use of aspirin; I25.2 Old myocardial infarction; Z95.5 Presence of coronary angioplasty implant and graft
CPT/HCPCS: 36415; 50435; 71045; 76937; 80048; 80053; 80069; 83735; 85025; 85027; 93005; 93010; 94640; 94760; 94761; 94762; 96374; 96376; 97110; 97161; 97530; 99152; 99284-25; A9270; C1729; C1769; C1887; G0378; J1650; J2250; J2405; J3010; J7050; Q9967

== ENCOUNTER 2025-03-20 03:43 | Emergency (ER) | payer OTHER, MEDICARE ==
[~2025-03-20] VITALS: Ht 180.3 cm; Wt 70.3 kg
[~2025-03-20 03:43] MED LIST changes: +AMOCLA875 PO; +BUME1 PO
[2025-03-20] MEDS ORDERED: Morphine Sulfate 4 MG/1 ML Injection IV ONE (04:25)
--- NOTE | 2025-03-20 08:59 | NUR ---
Pt. is resting in ED1, but responds when I enter the room. Pt. is known to this drop wire builder from previous hospitalizations. Pt. welcomes my visit. Pt. is unsettled about his heart. Listen with emapthy and a calming presence. 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 Pt. displays evidence of trust and engagement. Prayed with Pt. Pt. verbalized gratitude for the spiritual care visit and welcomes this drop wire builder to return.
[2025-03-20 17:00] VITALS: BP 110/70
== END 2025-03-20 17:05 | disposition home or self-care (01) ==
LOC: ER 03:43
DX: Z51.5 Encounter for palliative care (principal); R10.9 Unspecified abdominal pain; Z59.89 Other problems related to housing and economic circumstances; Z88.1 Allergy status to other antibiotic agents; Z88.8 Allergy status to other drugs, medicaments and biological substances; Z79.899 Other long term (current) drug therapy; Z79.2 Long term (current) use of antibiotics; F43.10 Post-traumatic stress disorder, unspecified; I10 Essential (primary) hypertension; E78.5 Hyperlipidemia, unspecified; J44.9 Chronic obstructive pulmonary disease, unspecified; M19.90 Unspecified osteoarthritis, unspecified site
CPT/HCPCS: 96374; 99284-25; J2270